=== PATIENT | female | born 1945 | race Caucasian/White ===

== ENCOUNTER 2019-05-19 10:35 | Day surgery (SDC) | payer MEDICARE ==
[~2019-05-19] VITALS: Ht 157.5 cm; Wt 128.4 kg
[~2019-05-19 10:35] MED LIST: AMLO5TAB6 PO; ATOR1TAB19 PO; CLOP75TA2 PO; FENO145T13 PO; GLIM2TAB29 PO; JANU50TA8 PO; LIDOCAINE 2% INJ 100 MG/5 ML SDV (FOR ANES.) As Ordered ONE; LISI-538 PO; MELO15TA28 PO; METO50TA7 PO; NS 1,000 ML IV ONE; OMEP-221 PO; OXYB1TAB13 PO; PROPOFOL 500 MG/50 ML VIAL As Ordered ONE; VITA500045 PO
[2019-05-19] MEDS ORDERED: fentaNYL 100 MCG/2 ML INJECTION (J3010) As Ordered ONE (11:49)
[2019-05-19 12:50] VITALS: BP 187/84
--- NOTE | 2019-05-19 15:50 | ROOR ---
Patient Name: Tamika Cee Procedure Date: 05/19/2019 11:41 AM Date of : 1945 Age: 73 Room: [facility] Gender: Female Note Status: Finalized Procedure: Colonoscopy Indications: Iron deficiency anemia Providers: Tru Gauthier Jr, MD Referring MD: Doug Kendall MD Requesting Provider: Medicines: Propofol per Anesthesia Complications: No immediate complications. Procedure: Pre-Anesthesia Assessment: - Prior to the procedure, a History and Physical was performed, and patient medications and allergies were reviewed. The patient is competent. The risks and benefits of the procedure and the sedation options and risks were discussed with the patient. All questions were answered and informed consent was obtained. Patient identification and proposed procedure were verified by the physician and the nurse in the pre-procedure area and in the procedure room. Mental Status Examination: alert and oriented. Airway Examination: normal oropharyngeal airway and neck mobility. Respiratory Examination: clear to auscultation. CV Examination: normal. ASA Grade Assessment: II - A patient with mild systemic disease. After reviewing the risks and benefits, the patient was deemed in satisfactory condition to undergo the procedure. The anesthesia plan was to use moderate sedation / analgesia (conscious sedation). Immediately prior to administration of medications, the patient was re-assessed for adequacy to receive sedatives. The heart rate, respiratory rate, oxygen saturations, blood pressure, adequacy of pulmonary ventilation, and response to care were monitored throughout the procedure. The physical status of the patient was re-assessed after the procedure. The Colonoscope was introduced through the anus and advanced to the cecum, identified by appendiceal orifice and ileocecal valve. The colonoscopy was performed without difficulty. The patient tolerated the procedure well. The quality of the bowel preparation was adequate. Findings: The rectum, recto-sigmoid colon, sigmoid colon, descending colon, transverse colon, ascending colon, cecum, appendiceal orifice and ileocecal valve appeared normal. Impression: - The rectum, recto-sigmoid colon, sigmoid colon, descending colon, transverse colon, ascending colon, cecum, appendiceal orifice and ileocecal valve are normal. - No specimens collected. Recommendation: - Discharge patient to home (ambulatory). - Repeat colonoscopy in 10 years for screening purposes. Tru Gauthier MD Tur Gauthier Jr, MD 05/19/2019 12:13:56 PM Electronically signed by Tru Gauthier Jr, MD Number of Addenda: 0 Note Initiated On: 05/19/2019 11:41 AM Estimated Blood Loss: Estimated blood loss: none.
--- NOTE | 2019-05-19 15:50 | ROOR ---
Patient Name: Tamika Cee Procedure Date: 05/19/2019 11:40 AM Date of : 1945 Age: 73 Room: [facility] Gender: Female Note Status: Finalized Procedure: Upper GI endoscopy Indications: Iron deficiency anemia Providers: Tru Gauthier Jr, MD Referring MD: Doug Kendall MD Requesting Provider: Medicines: Propofol per Anesthesia Complications: No immediate complications. Procedure: Pre-Anesthesia Assessment: - Prior to the procedure, a History and Physical was performed, and patient medications and allergies were reviewed. The patient is competent. The risks and benefits of the procedure and the sedation options and risks were discussed with the patient. All questions were answered and informed consent was obtained. Patient identification and proposed procedure were verified by the physician and the nurse in the pre-procedure area and in the procedure room. Mental Status Examination: alert and oriented. Airway Examination: normal oropharyngeal airway and neck mobility. Respiratory Examination: clear to auscultation. CV Examination: normal. ASA Grade Assessment: II - A patient with mild systemic disease. After reviewing the risks and benefits, the patient was deemed in satisfactory condition to undergo the procedure. The anesthesia plan was to use moderate sedation / analgesia (conscious sedation). Immediately prior to administration of medications, the patient was re-assessed for adequacy to receive sedatives. The heart rate, respiratory rate, oxygen saturations, blood pressure, adequacy of pulmonary ventilation, and response to care were monitored throughout the procedure. The physical status of the patient was re-assessed after the procedure. The Endoscope was introduced through the mouth, and advanced to the second part of duodenum. The upper GI endoscopy was accomplished without difficulty. The patient tolerated the procedure well. Findings: The upper third of the esophagus, middle third of the esophagus and lower third of the esophagus were normal. A medium-sized hiatal hernia was present. Scattered islands of salmon-colored mucosa were present. Biopsies were taken with a cold forceps for histology. The cardia, gastric fundus, gastric body, gastric antrum, prepyloric region of the stomach and pylorus were normal. The duodenal bulb, first portion of the duodenum and second portion of the duodenum were normal. Impression: - Normal upper third of esophagus, middle third of esophagus and lower third of esophagus. - Medium-sized hiatal hernia. 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 Biopsied. - Normal cardia, gastric fundus, gastric body, antrum, prepyloric region of the stomach and pylorus. - Normal duodenal bulb, first portion of the duodenum and second portion of the duodenum. Recommendation: - Discharge patient to home (ambulatory). - Return to my office in 2 weeks. Tru Gauthier MD Tru Gauthier Jr, MD 05/19/2019 12:03:50 PM Electronically signed by Tru Gauthier Jr, MD Number of Addenda: 0 Note Initiated On: 05/19/2019 11:40 AM Estimated Blood Loss: Estimated blood loss: none.
== END 2019-05-19 13:03 | disposition home or self-care (01) ==
LOC: M OPP 10:35
PROVIDERS: ATTEND Surgery
DX: K22.8 Other specified diseases of esophagus (principal); K62.5 Hemorrhage of anus and rectum; K57.30 Diverticulosis of large intestine without perforation or abscess without bleeding; D50.9 Iron deficiency anemia, unspecified; I10 Essential (primary) hypertension; Z79.899 Other long term (current) drug therapy; Z88.0 Allergy status to penicillin; Z88.1 Allergy status to other antibiotic agents; Z88.2 Allergy status to sulfonamides; Z85.51 Personal history of malignant neoplasm of bladder
CPT/HCPCS: 43239; 45378; 88305; J3010

== ENCOUNTER 2022-06-10 09:13 | Inpatient (IN) | payer MEDICARE, BC, MEDICAID ==
[~2022-06-10] VITALS: Ht 160 cm; Wt 129.1 kg
[~2022-06-10 09:13] MED LIST changes: +AMLO1TAB24 PO; -AMLO5TAB6 PO; -FENO145T13 PO; +FENO145T7 PO; -LIDOCAINE 2% INJ 100 MG/5 ML SDV (FOR ANES.) As Ordered ONE; -LISI-538 PO; +LISI20TA33 PO; -NS 1,000 ML IV ONE; -OMEP-221 PO; +OMEP40CA5 PO; +OXYB15TA14 PO; -OXYB1TAB13 PO; -PROPOFOL 500 MG/50 ML VIAL As Ordered ONE
[2022-06-10 09:55] LABS: BASO # 0.1 10^3/uL (0.0-0.2); BASO % 0.6 % (0.0-1.0); EOS # 0.1 10^3/uL (0.0-0.5); EOS % 1.2 % (0.0-3.0); HEMATOCRIT 36.7 % (36.0-47.0); HEMOGLOBIN 11.2 g/dl (12.0-15.5); LYMPH # 0.8 10^3/uL (1.5-5.0); LYMPH % 7.9 % (24.0-44.0); MEAN CORPUSCULAR HGB CONC 30.5 g/dl (32.0-36.5); MEAN CORPUSCULAR VOLUME 91.8 fl (80.0-96.0); MONO # 0.7 10^3/uL (0.0-0.8); MONO % 6.7 % (2.0-8.0); NEUTROPHILS # 8.4 10^3/uL (1.5-8.5); NEUTROPHILS % 82.9 % (36.0-66.0); PLATELET COUNT, AUTOMATED 303 10^3/uL (150-450); WHITE BLOOD COUNT 10.2 10^3/uL (4.0-10.0)
[2022-06-10 10:25] LABS: ALBUMIN 3.3 G/DL (3.2-5.2); BILIRUBIN,DIRECT 0.2 MG/DL (<0.4); BILIRUBIN,TOTAL 0.5 MG/DL (0.3-1.2); CALCIUM LEVEL 9.3 MG/DL (8.3-10.6); CREATININE FOR GFR 1.51 MG/DL (0.55-1.30); GLOMERULAR FILTRATION RATE 35.9 (>39); POTASSIUM SERUM 4.7 MMOL/L (3.5-5.1)
[2022-06-10] MEDS ORDERED: DULA3PEN SQ (10:34)
[2022-06-10] MEDS ORDERED: NATE120T4 PO (10:34)
[2022-06-10] MEDS ORDERED: SYNT50TA PO (10:34)
[2022-06-10] MEDS ORDERED: METO1TAB7 PO (10:34)
[2022-06-10] MEDS ORDERED: RANO500T7 PO (10:34)
[2022-06-10] MEDS ORDERED: NOVOINJ3 SC (10:34)
[2022-06-10] MEDS ORDERED: DILT180C95 PO (10:34)
[2022-06-10] MEDS ORDERED: FLEC50HA PO (10:34)
[2022-06-10] MEDS ORDERED: POTA10CA33 PO (10:34)
[2022-06-10] MEDS ORDERED: NYST1POW9 TOP (10:34)
[2022-06-10] MEDS ORDERED: ELIQ5TAB PO (10:34)
[2022-06-10] MEDS ORDERED: HOME MED LIST COMPLETE! XX SCH (10:40)
[2022-06-10 11:35] LABS: RSV AMPLIFICATION NEGATIVE (NEGATIVE)
[2022-06-10] MEDS ORDERED: FUROSEMIDE 40MG/4ML VIAL IV ONE (11:55)
[2022-06-10 12:00] LABS: MAGNESIUM LEVEL 1.6 MG/DL (1.8-2.4)
[2022-06-10] MEDS ORDERED: GLUCAGON INJ 1MG VIAL SC PRN (14:20)
[2022-06-10] MEDS ORDERED: DEXTROSE 50% 50ML SYRINGE IV PRN (14:20)
[2022-06-10] MEDS ORDERED: GLUCOSE 4GM CHEW TABLET PO PRN (14:20)
[2022-06-10] MEDS ORDERED: MOM 30ML SUSPENSION UDC PO PRN (14:20)
[2022-06-10] MEDS ORDERED: PILL CUTTER 1 EACH XX PRN (14:40)
[2022-06-10 16:07] LABS: INR 1.39; PARTIAL THROMBOPLASTIN TIME 30.7 SECONDS (24.8-34.2); PROTHROMBIN TIME 17.3 SECONDS (12.5-14.5)
[2022-06-10] MEDS: FUROSEMIDE 40MG/4ML VIAL IV SCH (17:34)
[2022-06-10] MEDS: INSULIN LISPRO (NovoLOG) PER UNIT SC SCH (17:35)
[2022-06-10] MEDS: MAGNESIUM OXIDE 400MG TAB (MAG-OX) PO SCH (21:00)
[2022-06-10] MEDS: ATORVASTATIN 10 MG TAB PO SCH (21:45)
[2022-06-10] MEDS: FLECAINIDE 50MG TABLET PO SCH (21:46)
[2022-06-10] MEDS: FENOFIBRATE 145MG TABLET (TRICOR) PO SCH (21:46)
[2022-06-10] MEDS: OMEPRAZOLE 20MG CAP PO SCH (21:46)
[2022-06-10] MEDS: APIXABAN 5 MG TAB (ELIQUIS) PO SCH (21:46)
[2022-06-10] MEDS: DOCUSATE SODIUM 100MG CAPSULE PO SCH (21:46)
[2022-06-10] MEDS: METOPROLOL SUCC (TopROL XL) 50MG **XL** TAB PO SCH (21:47)
[2022-06-10 22:37] VITALS: BP 126/75
[2022-06-10] MEDS: POTASSIUM CHLORIDE 10MEQ SR TABLET PO SCH (22:45)
[2022-06-11 00:07] VITALS: BP 115/58
[2022-06-11] MEDS ORDERED: MAG SULF 1GM/100ML (MAG RUN) 1 GM in IV 1 EA IV ONE ×2 (01:00→11:30)
[2022-06-11 04:28] VITALS: BP 110/58
[2022-06-11] MEDS: LEVOTHYROXINE 50MCG TABLET (0.05MG) PO SCH (05:22)
[2022-06-11 08:27] VITALS: BP 114/57
[2022-06-11 08:37] LABS: BASO # 0.1 10^3/uL (0.0-0.2); BASO % 0.7 % (0.0-1.0); EOS # 0.1 10^3/uL (0.0-0.5); EOS % 1.1 % (0.0-3.0); HEMATOCRIT 35.9 % (36.0-47.0); HEMOGLOBIN 11.1 g/dl (12.0-15.5); LYMPH # 1.1 10^3/uL (1.5-5.0); MEAN CORPUSCULAR HEMOGLOBIN 27.8 pg (27.0-33.0); MEAN CORPUSCULAR HGB CONC 30.9 g/dl (32.0-36.5); MEAN CORPUSCULAR VOLUME 89.8 fl (80.0-96.0); MONO # 0.6 10^3/uL (0.0-0.8); NEUTROPHILS # 7.1 10^3/uL (1.5-8.5); NEUTROPHILS % 78.9 % (36.0-66.0); PLATELET COUNT, AUTOMATED 309 10^3/uL (150-450)
[2022-06-11] MEDS: POTASSIUM CHLORIDE 10MEQ SR TABLET PO SCH ×2 (08:46→20:31)
[2022-06-11] MEDS: OMEPRAZOLE 20MG CAP PO SCH ×2 (08:46→20:29)
[2022-06-11] MEDS: APIXABAN 5 MG TAB (ELIQUIS) PO SCH ×2 (08:46→20:30)
[2022-06-11] MEDS: MAGNESIUM OXIDE 400MG TAB (MAG-OX) PO SCH ×2 (08:46→20:31)
[2022-06-11] MEDS: FUROSEMIDE 40MG/4ML VIAL IV SCH ×2 (08:47→17:14)
[2022-06-11] MEDS: FLECAINIDE 50MG TABLET PO SCH ×2 (08:47→20:30)
[2022-06-11] MEDS: RANOLAZINE 500MG ER TAB PO SCH (08:47)
[2022-06-11] MEDS: INSULIN LISPRO (NovoLOG) PER UNIT SC SCH ×3 (08:48→18:37)
[2022-06-11] MEDS: DOCUSATE SODIUM 100MG CAPSULE PO SCH ×2 (08:49→20:30)
[2022-06-11 08:55] LABS: MAGNESIUM LEVEL 1.7 MG/DL (1.8-2.4)
[2022-06-11 09:00] LABS: CALCIUM LEVEL 8.7 MG/DL (8.3-10.6); CREATININE FOR GFR 1.46 MG/DL (0.55-1.30); GLOMERULAR FILTRATION RATE 37.3 (>39); POTASSIUM SERUM 4.6 MMOL/L (3.5-5.1)
[2022-06-11 12:00] VITALS: BP 117/56
[2022-06-11] MEDS: NYSTATIN 100,000 UNITS/GM TOPICAL PWD 15GM TOP SCH ×2 (12:47→20:33)
[2022-06-11 15:47] VITALS: BP 109/73
[2022-06-11 20:00] VITALS: BP 104/72
[2022-06-11] MEDS: FENOFIBRATE 145MG TABLET (TRICOR) PO SCH (20:30)
[2022-06-11] MEDS: ATORVASTATIN 10 MG TAB PO SCH (20:31)
[2022-06-11] MEDS: METOPROLOL SUCC (TopROL XL) 50MG **XL** TAB PO SCH (20:32)
[2022-06-12 04:00] VITALS: BP 113/73
[2022-06-12] MEDS: LEVOTHYROXINE 50MCG TABLET (0.05MG) PO SCH (05:20)
[2022-06-12 08:00] VITALS: BP 98/60
[2022-06-12] MEDS: RANOLAZINE 500MG ER TAB PO SCH (08:25)
[2022-06-12] MEDS: DOCUSATE SODIUM 100MG CAPSULE PO SCH ×2 (08:25→20:54)
[2022-06-12] MEDS: INSULIN LISPRO (NovoLOG) PER UNIT SC SCH ×4 (08:25→21:43)
[2022-06-12] MEDS: APIXABAN 5 MG TAB (ELIQUIS) PO SCH ×2 (08:25→20:55)
[2022-06-12] MEDS: OMEPRAZOLE 20MG CAP PO SCH ×2 (08:25→20:54)
[2022-06-12] MEDS: POTASSIUM CHLORIDE 10MEQ SR TABLET PO SCH ×2 (08:26→20:54)
[2022-06-12] MEDS: MAGNESIUM OXIDE 400MG TAB (MAG-OX) PO SCH ×2 (08:26→20:54)
[2022-06-12] MEDS: FLECAINIDE 50MG TABLET PO SCH ×2 (08:41→21:00)
[2022-06-12] MEDS: NYSTATIN 100,000 UNITS/GM TOPICAL PWD 15GM TOP SCH ×2 (08:42→20:57)
[2022-06-12 08:57] LABS: BASO # 0.1 10^3/uL (0.0-0.2); BASO % 0.9 % (0.0-1.0); EOS # 0.1 10^3/uL (0.0-0.5); EOS % 1.3 % (0.0-3.0); HEMATOCRIT 37.4 % (36.0-47.0); HEMOGLOBIN 11.6 g/dl (12.0-15.5); LYMPH # 1.2 10^3/uL (1.5-5.0); MEAN CORPUSCULAR VOLUME 90.3 fl (80.0-96.0); MONO # 0.7 10^3/uL (0.0-0.8); MONO % 8.2 % (2.0-8.0); NEUTROPHILS # 5.8 10^3/uL (1.5-8.5); NEUTROPHILS % 74.1 % (36.0-66.0); PLATELET COUNT, AUTOMATED 354 10^3/uL (150-450); RED BLOOD COUNT 4.14 10^6/uL (4.00-5.40); WHITE BLOOD COUNT 7.9 10^3/uL (4.0-10.0)
[2022-06-12] MEDS ORDERED: DIGOXIN INJ 0.5 MG/2 ML AMP IV ONE ×2 (09:00→15:00)
[2022-06-12 09:04] LABS: MAGNESIUM LEVEL 1.6 MG/DL (1.8-2.4)
[2022-06-12 09:15] LABS: CALCIUM LEVEL 9.2 MG/DL (8.3-10.6); CREATININE FOR GFR 1.72 MG/DL (0.55-1.30); GLOMERULAR FILTRATION RATE 30.9 (>39); POTASSIUM SERUM 4.1 MMOL/L (3.5-5.1)
[2022-06-12] MEDS: METOCLOPRAMIDE INJ 10MG/2ML VIAL IV PRN (10:27)
[2022-06-12 12:00] VITALS: BP 123/79
[2022-06-12 15:56] VITALS: BP 135/69
[2022-06-12 20:43] VITALS: BP 104/58
[2022-06-12] MEDS: ATORVASTATIN 10 MG TAB PO SCH (20:55)
[2022-06-12] MEDS: FENOFIBRATE 145MG TABLET (TRICOR) PO SCH (20:55)
[2022-06-12] MEDS: METOPROLOL SUCC (TopROL XL) 50MG **XL** TAB PO SCH (20:55)
[2022-06-13] MEDS: AMIODARONE 200 MG TAB (PACERONE) PO SCH ×3 (00:08→22:01)
[2022-06-13 00:10] VITALS: BP 116/56
[2022-06-13 04:00] VITALS: BP 106/56
[2022-06-13 04:59] LABS: BASO # 0.1 10^3/uL (0.0-0.2); EOS # 0.1 10^3/uL (0.0-0.5); EOS % 1.6 % (0.0-3.0); HEMATOCRIT 35.1 % (36.0-47.0); HEMOGLOBIN 10.8 g/dl (12.0-15.5); LYMPH # 1.6 10^3/uL (1.5-5.0); LYMPH % 20.3 % (24.0-44.0); MEAN CORPUSCULAR HEMOGLOBIN 27.7 pg (27.0-33.0); MEAN CORPUSCULAR HGB CONC 30.8 g/dl (32.0-36.5); MONO # 0.7 10^3/uL (0.0-0.8); MONO % 9.3 % (2.0-8.0); NEUTROPHILS # 5.4 10^3/uL (1.5-8.5); NEUTROPHILS % 67.3 % (36.0-66.0); PLATELET COUNT, AUTOMATED 316 10^3/uL (150-450)
[2022-06-13 05:17] LABS: CALCIUM LEVEL 8.9 MG/DL (8.3-10.6); CREATININE FOR GFR 1.59 MG/DL (0.55-1.30); GLOMERULAR FILTRATION RATE 33.8 (>39); POTASSIUM SERUM 4.2 MMOL/L (3.5-5.1)
[2022-06-13] MEDS: LEVOTHYROXINE 50MCG TABLET (0.05MG) PO SCH (05:32)
[2022-06-13 08:00] VITALS: BP 137/69
[2022-06-13] MEDS: NYSTATIN 100,000 UNITS/GM TOPICAL PWD 15GM TOP SCH ×2 (09:00→21:00)
[2022-06-13] MEDS ORDERED: DIGOXIN 0.25 MG TAB PO SCH (09:00)
[2022-06-13] MEDS: INSULIN LISPRO (NovoLOG) PER UNIT SC SCH ×4 (09:49→22:06)
[2022-06-13] MEDS: RANOLAZINE 500MG ER TAB PO SCH (09:49)
[2022-06-13] MEDS: DOCUSATE SODIUM 100MG CAPSULE PO SCH ×2 (09:50→22:01)
[2022-06-13] MEDS: POTASSIUM CHLORIDE 10MEQ SR TABLET PO SCH ×2 (09:50→22:00)
[2022-06-13] MEDS: OMEPRAZOLE 20MG CAP PO SCH ×2 (09:50→21:59)
[2022-06-13] MEDS: APIXABAN 5 MG TAB (ELIQUIS) PO SCH ×2 (09:50→22:01)
[2022-06-13] MEDS: MAGNESIUM OXIDE 400MG TAB (MAG-OX) PO SCH ×2 (09:51→22:01)
[2022-06-13 12:00] VITALS: BP 128/60
[2022-06-13 16:00] VITALS: BP 137/71
[2022-06-13] MEDS: FUROSEMIDE 40MG/4ML VIAL IV SCH (17:07)
[2022-06-13 20:00] VITALS: BP 117/60
[2022-06-13] MEDS: FENOFIBRATE 145MG TABLET (TRICOR) PO SCH (22:00)
[2022-06-13] MEDS: ATORVASTATIN 10 MG TAB PO SCH (22:00)
[2022-06-13] MEDS: METOPROLOL SUCC (TopROL XL) 50MG **XL** TAB PO SCH (22:02)
[2022-06-14] VITALS: BP 107/62
[2022-06-14] MEDS: METOCLOPRAMIDE INJ 10MG/2ML VIAL IV PRN (01:19)
[2022-06-14 04:00] VITALS: BP 141/65
[2022-06-14 04:52] LABS: BASO # 0.1 10^3/uL (0.0-0.2); EOS # 0.1 10^3/uL (0.0-0.5); EOS % 1.9 % (0.0-3.0); HEMOGLOBIN 11.1 g/dl (12.0-15.5); LYMPH # 1.3 10^3/uL (1.5-5.0); LYMPH % 18.2 % (24.0-44.0); MEAN CORPUSCULAR HEMOGLOBIN 27.8 pg (27.0-33.0); MEAN CORPUSCULAR VOLUME 92.7 fl (80.0-96.0); MONO # 0.6 10^3/uL (0.0-0.8); MONO % 8.7 % (2.0-8.0); NEUTROPHILS # 4.8 10^3/uL (1.5-8.5); NEUTROPHILS % 69.8 % (36.0-66.0); PLATELET COUNT, AUTOMATED 282 10^3/uL (150-450); RED BLOOD COUNT 3.99 10^6/uL (4.00-5.40); WHITE BLOOD COUNT 6.9 10^3/uL (4.0-10.0)
[2022-06-14 05:20] LABS: CALCIUM LEVEL 8.6 MG/DL (8.3-10.6); CREATININE FOR GFR 1.51 MG/DL (0.55-1.30); GLOMERULAR FILTRATION RATE 35.9 (>39); POTASSIUM SERUM 4.5 MMOL/L (3.5-5.1)
[2022-06-14] MEDS: LEVOTHYROXINE 50MCG TABLET (0.05MG) PO SCH (06:27)
[2022-06-14] MEDS: INSULIN LISPRO (NovoLOG) PER UNIT SC SCH ×4 (07:30→20:20)
[2022-06-14 08:00] VITALS: BP 128/57
[2022-06-14 08:10] LABS: MAGNESIUM LEVEL 1.6 MG/DL (1.8-2.4)
[2022-06-14] MEDS: METOCLOPRAMIDE INJ 10MG/2ML VIAL IV SCH ×4 (09:13→23:39)
[2022-06-14] MEDS: AMIODARONE 200 MG TAB (PACERONE) PO SCH ×2 (09:13→20:17)
[2022-06-14] MEDS: RANOLAZINE 500MG ER TAB PO SCH (09:13)
[2022-06-14] MEDS: FUROSEMIDE 40MG/4ML VIAL IV SCH ×2 (09:13→17:46)
[2022-06-14] MEDS: DOCUSATE SODIUM 100MG CAPSULE PO SCH ×2 (09:13→20:16)
[2022-06-14] MEDS: POTASSIUM CHLORIDE 10MEQ SR TABLET PO SCH (09:14)
[2022-06-14] MEDS: APIXABAN 5 MG TAB (ELIQUIS) PO SCH ×2 (09:14→20:18)
[2022-06-14] MEDS: MAGNESIUM OXIDE 400MG TAB (MAG-OX) PO SCH ×2 (09:14→20:19)
[2022-06-14] MEDS: OMEPRAZOLE 20MG CAP PO SCH ×2 (09:14→20:17)
[2022-06-14] MEDS: NYSTATIN 100,000 UNITS/GM TOPICAL PWD 15GM TOP SCH ×2 (09:15→20:21)
[2022-06-14] MEDS ORDERED: ONDANSETRON 4MG 2ML VIAL IV PRN (10:20)
[2022-06-14] MEDS: MAG SULF 1GM/100ML (MAG RUN) 1 GM in IV 1 EA IV SCH ×2 (11:10→12:20)
[2022-06-14 12:00] VITALS: BP 128/65
[2022-06-14 16:00] VITALS: BP 126/66
[2022-06-14] MEDS: METOPROLOL SUCC (TopROL XL) 50MG **XL** TAB PO SCH (20:16)
[2022-06-14] MEDS: FENOFIBRATE 145MG TABLET (TRICOR) PO SCH (20:18)
[2022-06-14] MEDS: ATORVASTATIN 10 MG TAB PO SCH (20:18)
[2022-06-15] VITALS (7 sets, daily range): BP systolic 104–155; BP diastolic 48–86
[2022-06-15] MEDS: METOCLOPRAMIDE INJ 10MG/2ML VIAL IV SCH ×4 (05:50→23:55)
[2022-06-15] MEDS: LEVOTHYROXINE 50MCG TABLET (0.05MG) PO SCH (05:50)
[2022-06-15 06:05] LABS: BASO # 0.1 10^3/uL (0.0-0.2); BASO % 1.2 % (0.0-1.0); EOS # 0.1 10^3/uL (0.0-0.5); HEMATOCRIT 41.7 % (36.0-47.0); HEMOGLOBIN 12.3 g/dl (12.0-15.5); LYMPH # 1.2 10^3/uL (1.5-5.0); LYMPH % 16.7 % (24.0-44.0); MEAN CORPUSCULAR HEMOGLOBIN 27.6 pg (27.0-33.0); MEAN CORPUSCULAR HGB CONC 29.5 g/dl (32.0-36.5); MEAN CORPUSCULAR VOLUME 93.5 fl (80.0-96.0); MONO # 0.7 10^3/uL (0.0-0.8); MONO % 10.5 % (2.0-8.0); NEUTROPHILS # 4.8 10^3/uL (1.5-8.5); PLATELET COUNT, AUTOMATED 312 10^3/uL (150-450); RED BLOOD COUNT 4.46 10^6/uL (4.00-5.40); WHITE BLOOD COUNT 6.9 10^3/uL (4.0-10.0)
[2022-06-15 06:24] LABS: MAGNESIUM LEVEL 1.8 MG/DL (1.8-2.4)
[2022-06-15 06:30] LABS: CALCIUM LEVEL 9.2 MG/DL (8.3-10.6); CREATININE FOR GFR 1.51 MG/DL (0.55-1.30); GLOMERULAR FILTRATION RATE 35.9 (>39); POTASSIUM SERUM 3.8 MMOL/L (3.5-5.1)
[2022-06-15] MEDS: DOCUSATE SODIUM 100MG CAPSULE PO SCH ×2 (09:42→20:59)
[2022-06-15] MEDS: INSULIN LISPRO (NovoLOG) PER UNIT SC SCH ×4 (09:42→20:08)
[2022-06-15] MEDS: FUROSEMIDE 40MG/4ML VIAL IV SCH ×2 (09:42→17:59)
[2022-06-15] MEDS: APIXABAN 5 MG TAB (ELIQUIS) PO SCH ×2 (09:43→20:59)
[2022-06-15] MEDS: RANOLAZINE 500MG ER TAB PO SCH (09:43)
[2022-06-15] MEDS: AMIODARONE 200 MG TAB (PACERONE) PO SCH ×2 (09:43→20:59)
[2022-06-15] MEDS: OMEPRAZOLE 20MG CAP PO SCH ×2 (09:43→21:00)
[2022-06-15] MEDS: NYSTATIN 100,000 UNITS/GM TOPICAL PWD 15GM TOP SCH ×2 (09:44→21:00)
[2022-06-15] MEDS: MAGNESIUM OXIDE 400MG TAB (MAG-OX) PO SCH ×2 (09:54→20:59)
[2022-06-15] MEDS: FENOFIBRATE 145MG TABLET (TRICOR) PO SCH (20:59)
[2022-06-15] MEDS: ATORVASTATIN 10 MG TAB PO SCH (20:59)
[2022-06-15] MEDS: METOPROLOL SUCC (TopROL XL) 50MG **XL** TAB PO SCH (21:00)
[2022-06-16 04:10] VITALS: BP 102/58
[2022-06-16] MEDS: LEVOTHYROXINE 50MCG TABLET (0.05MG) PO SCH (05:35)
[2022-06-16] MEDS: METOCLOPRAMIDE INJ 10MG/2ML VIAL IV SCH ×3 (05:35→18:00)
[2022-06-16 06:02] LABS: BASO # 0.1 10^3/uL (0.0-0.2); EOS # 0.2 10^3/uL (0.0-0.5); EOS % 2.9 % (0.0-3.0); HEMATOCRIT 36.9 % (36.0-47.0); HEMOGLOBIN 11.3 g/dl (12.0-15.5); LYMPH # 1.3 10^3/uL (1.5-5.0); LYMPH % 18.9 % (24.0-44.0); MEAN CORPUSCULAR HEMOGLOBIN 27.8 pg (27.0-33.0); MEAN CORPUSCULAR HGB CONC 30.6 g/dl (32.0-36.5); MEAN CORPUSCULAR VOLUME 90.7 fl (80.0-96.0); MONO # 0.7 10^3/uL (0.0-0.8); MONO % 10.6 % (2.0-8.0); NEUTROPHILS # 4.6 10^3/uL (1.5-8.5); PLATELET COUNT, AUTOMATED 337 10^3/uL (150-450); RED BLOOD COUNT 4.07 10^6/uL (4.00-5.40); WHITE BLOOD COUNT 6.9 10^3/uL (4.0-10.0)
[2022-06-16 06:34] LABS: CREATININE FOR GFR 1.54 MG/DL (0.55-1.30); GLOMERULAR FILTRATION RATE 35.1 (>39)
[2022-06-16] MEDS: INSULIN LISPRO (NovoLOG) PER UNIT SC SCH ×4 (07:30→21:25)
[2022-06-16 07:46] VITALS: BP 138/66
[2022-06-16] MEDS: OMEPRAZOLE 20MG CAP PO SCH ×2 (09:00→21:24)
[2022-06-16] MEDS: FUROSEMIDE 40MG/4ML VIAL IV SCH (09:30)
[2022-06-16 09:31] VITALS: BP 138/66
[2022-06-16] MEDS: DOCUSATE SODIUM 100MG CAPSULE PO SCH ×2 (09:31→21:24)
[2022-06-16] MEDS: MAGNESIUM OXIDE 400MG TAB (MAG-OX) PO SCH ×2 (09:32→21:25)
[2022-06-16] MEDS: AMIODARONE 200 MG TAB (PACERONE) PO SCH ×2 (09:32→21:25)
[2022-06-16] MEDS: APIXABAN 5 MG TAB (ELIQUIS) PO SCH ×2 (09:33→21:24)
[2022-06-16] MEDS: RANOLAZINE 500MG ER TAB PO SCH (09:33)
[2022-06-16] MEDS: NYSTATIN 100,000 UNITS/GM TOPICAL PWD 15GM TOP SCH ×2 (09:34→21:26)
[2022-06-16 16:00] VITALS: BP 101/52
[2022-06-16] MEDS: TORSEMIDE 20 MG TAB PO SCH (18:05)
[2022-06-16] MEDS ORDERED: TORS20TA2 PO (18:22)
[2022-06-16] MEDS ORDERED: AMIO200T49 PO (18:24)
[2022-06-16] MEDS ORDERED: MAGN400T2 PO (18:25)
[2022-06-16 20:02] VITALS: BP 95/52
[2022-06-16] MEDS: METOPROLOL SUCC (TopROL XL) 50MG **XL** TAB PO SCH (21:00)
[2022-06-16 21:02] VITALS: BP 105/61
[2022-06-16] MEDS: FENOFIBRATE 145MG TABLET (TRICOR) PO SCH (21:24)
[2022-06-16] MEDS: ATORVASTATIN 10 MG TAB PO SCH (21:25)
[2022-06-17 04:16] VITALS: BP 114/64
[2022-06-17] MEDS: METOCLOPRAMIDE INJ 10MG/2ML VIAL IV SCH ×2 (05:21)
[2022-06-17] MEDS: LEVOTHYROXINE 50MCG TABLET (0.05MG) PO SCH (06:00)
[2022-06-17 07:33] VITALS: BP 114/71
[2022-06-17] MEDS: OMEPRAZOLE 20MG CAP PO SCH (09:14)
[2022-06-17] MEDS: APIXABAN 5 MG TAB (ELIQUIS) PO SCH (09:14)
[2022-06-17] MEDS: RANOLAZINE 500MG ER TAB PO SCH (09:15)
[2022-06-17] MEDS: MAGNESIUM OXIDE 400MG TAB (MAG-OX) PO SCH (09:15)
[2022-06-17] MEDS: DOCUSATE SODIUM 100MG CAPSULE PO SCH (09:15)
[2022-06-17] MEDS: TORSEMIDE 20 MG TAB PO SCH (09:15)
[2022-06-17] MEDS: NYSTATIN 100,000 UNITS/GM TOPICAL PWD 15GM TOP SCH (09:16)
[2022-06-17] MEDS: AMIODARONE 200 MG TAB (PACERONE) PO SCH (09:16)
[2022-06-17] MEDS ORDERED: AMIODARONE HCL 150 MG in IV 1 EA IV STA (10:12)
[2022-06-17] MEDS ORDERED: POTA10CA33 PO (10:16)
[2022-06-17] MEDS: INSULIN LISPRO (NovoLOG) PER UNIT SC SCH (10:45)
== END 2022-06-17 12:22 | DRG 291 ==
LOC: M ED 09:13 → EDBD 09:13 → M ED INP 09:14 → ENRESERV 21:31 → M PCU 22:30 → OBSVTOIN 06-12 08:13
PROVIDERS: ADMIT Internal Medicine Nephrology; ATTEND Internal Medicine Nephrology
DX: I13.0 Hypertensive heart and chronic kidney disease with heart failure and stage 1 through stage 4 chronic kidney disease, or unspecified chronic kidney disease (principal); I50.33 Acute on chronic diastolic (congestive) heart failure; Z68.43 Body mass index [BMI] 50.0-59.9, adult; N17.9 Acute kidney failure, unspecified; E11.9 Type 2 diabetes mellitus without complications; E83.42 Hypomagnesemia; E03.9 Hypothyroidism, unspecified; E78.5 Hyperlipidemia, unspecified; I25.10 Atherosclerotic heart disease of native coronary artery without angina pectoris; I44.7 Left bundle-branch block, unspecified; K21.9 Gastro-esophageal reflux disease without esophagitis; M17.0 Bilateral primary osteoarthritis of knee; E66.01 Morbid (severe) obesity due to excess calories; N18.30 Chronic kidney disease, stage 3 unspecified; E11.22 Type 2 diabetes mellitus with diabetic chronic kidney disease; I27.81 Cor pulmonale (chronic); I27.20 Pulmonary hypertension, unspecified; I50.810 Right heart failure, unspecified; I34.0 Nonrheumatic mitral (valve) insufficiency; Z95.2 Presence of prosthetic heart valve; Z79.899 Other long term (current) drug therapy; Z88.8 Allergy status to other drugs, medicaments and biological substances; Z87.891 Personal history of nicotine dependence

== ENCOUNTER → 2022-07-14 | Outpatient (REF) | payer MEDICARE, BC, MEDICAID ==
[~2022-07-14] MED LIST changes: +AMIO200T49 PO; +DILT180C95 PO; +DULA3PEN SQ; +ELIQ5TAB PO; +FLEC50HA PO; +MAGN400T2 PO; +METO1TAB7 PO; +NATE120T4 PO; +NOVOINJ3 SC; +NYST1POW9 TOP; +POTA10CA33 PO; +RANO500T7 PO; +SYNT50TA PO; +TORS20TA2 PO
[2022-07-14 15:16] LABS: APPEARANCE, URINE MANUAL HAZY (CLEAR); COLOR, URINE MANUAL LT YELLOW (YELLOW)
[2022-07-14 15:17] LABS: BILIRUBIN, URINE MANUAL NEGATIVE (NEGATIVE); BLOOD URINE MANUAL NEGATIVE (NEGATIVE); GLUCOSE, URINE (UA) MANUAL NEGATIVE (NEGATIVE); KETONE, URINE MANUAL NEGATIVE (NEGATIVE); LEUKOCYTE ESTERASE, URINE MAN NEGATIVE (NEGATIVE); NITRITE, URINE MANUAL POSITIVE (NEGATIVE); PROTEIN, URINE MANUAL NEGATIVE (NEGATIVE); UROBILINOGEN, URINE MANUAL NORMAL (NORMAL)
[2022-07-14 15:25] LABS: BACTERIA, URINE LARGE AMOUNT; HYALINE CAST, URINE NONE SEEN /lpf (0-1); SQUAMOUS EPITHELIAL CELL URINE SMALL AMOUNT /hpf (SMALL AMT)
== END ==
PROVIDERS: ATTEND Nurse Practitioner Family
DX: N39.0 Urinary tract infection, site not specified (principal)

== ENCOUNTER → 2022-07-21 | Outpatient (REF) | payer MEDICARE, BC, MEDICAID | PROVIDERS: ATTEND Internal Medicine Cardiovascular Disease | DX: Z01.818 Encounter for other preprocedural examination (principal); Z20.822 Contact with and (suspected) exposure to COVID-19 ==

== ENCOUNTER → 2022-09-04 | Outpatient (REF) | payer MEDICARE, BC, MEDICAID ==
[2022-09-04 13:39] LABS: APPEARANCE, URINE CLOUDY (CLEAR); BACTERIA, URINE AUTO 3+ (NEGATIVE); BILIRUBIN, URINE AUTO NEGATIVE (NEGATIVE); BLOOD, URINE BLOOD 2+ (NEGATIVE); COLOR, URINE YELLOW (YELLOW); GLUCOSE, URINE (UA) AUTO NEGATIVE (NEGATIVE); KETONE, URINE AUTO NEGATIVE (NEGATIVE); LEUKOCYTE ESTERASE, URINE AUTO 3+ (NEGATIVE); MUCUS, URINE SMALL (NEGATIVE); NITRITE, URINE AUTO NEGATIVE (NEGATIVE); PROTEIN, URINE AUTO NEGATIVE (NEGATIVE); RBC, URINE AUTO 18 /HPF (0-3); SPECIFIC GRAVITY URINE AUTO 1.016 (1.002-1.035); SQUAMOUS EPITHELIAL CELL UR AU 12 /HPF (0-6); UROBILINOGEN, URINE AUTO 0.2 mg/dL (0.0-2.0); WBC, URINE AUTO TNTC /HPF (0-3)
== END ==
PROVIDERS: ATTEND Internal Medicine Cardiovascular Disease
DX: N39.0 Urinary tract infection, site not specified (principal)

== ENCOUNTER → 2022-11-11 | Outpatient (REF) | payer MEDICARE, BC, MEDICAID | LOC: M LAB REF 10:11 | PROVIDERS: ATTEND Internal Medicine Cardiovascular Disease | DX: K52.9 Noninfective gastroenteritis and colitis, unspecified (principal) ==

== ENCOUNTER → 2022-11-19 | Outpatient (REF) | payer MEDICARE, BC, MEDICAID | LOC: M LAB REF 15:35 | PROVIDERS: ATTEND Internal Medicine Cardiovascular Disease | DX: N39.0 Urinary tract infection, site not specified (principal) ==

== ENCOUNTER → 2022-11-26 | Outpatient (REF) | payer MEDICARE, BC, MEDICAID ==
[2022-11-26 11:29] LABS: HEMATOCRIT 30.9 % (36.0-47.0); HEMOGLOBIN 9.3 g/dl (12.0-15.5); MEAN CORPUSCULAR HEMOGLOBIN 25.3 pg (27.0-33.0); MEAN CORPUSCULAR HGB CONC 30.1 g/dl (32.0-36.5); MEAN CORPUSCULAR VOLUME 84.2 fl (80.0-96.0); PLATELET COUNT, AUTOMATED 252 10^3/uL (150-450); RED BLOOD COUNT 3.67 10^6/uL (4.00-5.40); WHITE BLOOD COUNT 6.4 10^3/uL (4.0-10.0)
[2022-11-26 12:01] LABS: HEMOGLOBIN A1c 8.1 % (4.0-6.0)
[2022-11-26 12:08] LABS: ALKALINE PHOSPHATASE 63 U/L (46-116); ALT/SGPT < 9 U/L (7.0-40); AST/SGOT 15 U/L (<34); BILIRUBIN,TOTAL 0.4 MG/DL (0.3-1.2); BLOOD UREA NITROGEN 49 MG/DL (9-23); CALCIUM LEVEL 8.5 MG/DL (8.3-10.6); CARBON DIOXIDE LEVEL 30 MMOL/L (20-31); CHLORIDE LEVEL 105 MMOL/L (98-107); CREATININE FOR GFR 2.45 MG/DL (0.55-1.30); FREE T4 1.24 NG/DL (0.89-1.76); GLOMERULAR FILTRATION RATE 20.5 (>39); GLUCOSE, FASTING 148 MG/DL (74-106); MAGNESIUM LEVEL 2.1 MG/DL (1.8-2.4); POTASSIUM SERUM 3.8 MMOL/L (3.5-5.1); SODIUM LEVEL 141 MMOL/L (136-145); TOTAL PROTEIN 5.2 G/DL (5.7-8.2); VITAMIN B12 LEVEL 268 PG/ML (211-911)
[2022-11-26 12:09] LABS: CPK CREATINE PHOSPHOKINASE 30 U/L (34-145); THYROID STIMULATING HORMONE 9.382 uIU/ML (0.55-4.78)
[2022-11-26 12:10] LABS: TOTAL 25(OH) VITAMIN D 36.5 NG/ML (20.0-100.0)
== END ==
PROVIDERS: ATTEND Internal Medicine Cardiovascular Disease
DX: I10 Essential (primary) hypertension (principal); E78.5 Hyperlipidemia, unspecified; E03.9 Hypothyroidism, unspecified; Z79.899 Other long term (current) drug therapy

== ENCOUNTER → 2023-01-21 | Outpatient (REF) | payer MEDICARE, BC, MEDICAID ==
[~2023-01-21] MED LIST changes: -POTA10CA33 PO; +POTA10CA60 PO
[2023-01-21 08:38] LABS: BASO # 0.1 10^3/uL (0.0-0.2); BASO % 0.8 % (0.0-1.0); EOS # 0.2 10^3/uL (0.0-0.5); EOS % 2.7 % (0.0-3.0); HEMATOCRIT 32.6 % (36.0-47.0); HEMOGLOBIN 9.9 g/dl (12.0-15.5); LYMPH # 1.3 10^3/uL (1.5-5.0); LYMPH % 22.5 % (24.0-44.0); MEAN CORPUSCULAR HEMOGLOBIN 25.2 pg (27.0-33.0); MEAN CORPUSCULAR HGB CONC 30.4 g/dl (32.0-36.5); MONO # 0.6 10^3/uL (0.0-0.8); MONO % 10.5 % (2.0-8.0); NEUTROPHILS # 3.7 10^3/uL (1.5-8.5); NEUTROPHILS % 63.2 % (36.0-66.0); PLATELET COUNT, AUTOMATED 234 10^3/uL (150-450); RED BLOOD COUNT 3.93 10^6/uL (4.00-5.40); WHITE BLOOD COUNT 5.9 10^3/uL (4.0-10.0)
[2023-01-21 08:54] LABS: CK-MB VALUE MASS 1.3 NG/ML (<3.6)
[2023-01-21 08:57] LABS: CPK CREATINE PHOSPHOKINASE 32 U/L (34-145); MB/CK RELATIVE INDEX 4.06 (< OR =4)
[2023-01-21 08:58] LABS: THYROXINE (T4) 10.5 UG/DL (4.5-10.9)
[2023-01-21 08:59] LABS: HEMOGLOBIN A1c 7.8 % (4.0-6.0); THYROID STIMULATING HORMONE 6.473 uIU/ML (0.55-4.78)
[2023-01-21 09:00] LABS: ALBUMIN 2.7 G/DL (3.2-5.2); ALKALINE PHOSPHATASE 61 U/L (46-116); ALT/SGPT < 9 U/L (7.0-40); AST/SGOT 9 U/L (<34); BILIRUBIN,TOTAL 0.4 MG/DL (0.3-1.2); BLOOD UREA NITROGEN 46 MG/DL (9-23); CALCIUM LEVEL 8.9 MG/DL (8.3-10.6); CARBON DIOXIDE LEVEL 29 MMOL/L (20-31); CHLORIDE LEVEL 103 MMOL/L (98-107); CREATININE FOR GFR 2.93 MG/DL (0.55-1.30); GLOMERULAR FILTRATION RATE 16.6 (>39); GLUCOSE, FASTING 111 MG/DL (74-106); MAGNESIUM LEVEL 1.9 MG/DL (1.8-2.4); SODIUM LEVEL 140 MMOL/L (136-145); TOTAL PROTEIN 5.1 G/DL (5.7-8.2)
== END ==
PROVIDERS: ATTEND Nurse Practitioner Family
DX: I10 Essential (primary) hypertension (principal); Z79.899 Other long term (current) drug therapy

== ENCOUNTER 2023-02-04 23:56 | Observation (INO) | payer MEDICARE, MEDICAID ==
[~2023-02-04] VITALS: Ht 160 cm; Wt 113.6 kg
[2023-02-05] MEDS ORDERED: CETI-24 PO (01:35)
[2023-02-05] MEDS ORDERED: VERI5TAB PO (01:35)
[2023-02-05] MEDS ORDERED: RISATAB3 PO (01:35)
[2023-02-05] MEDS ORDERED: SYNT75TA PO (01:35)
[2023-02-05] MEDS ORDERED: OLOP5DRO17 OU (01:35)
[2023-02-05] MEDS ORDERED: BUME2TAB3 PO (01:35)
[2023-02-05] MEDS ORDERED: SUCR1TAB56 PO (01:35)
[2023-02-05] MEDS ORDERED: POTA-149 PO (01:35)
[2023-02-05] MEDS ORDERED: TUMS500C PO (01:47)
[2023-02-05] MEDS ORDERED: MUPI2OI EXT (01:47)
[2023-02-05] MEDS ORDERED: ACET-907 PO (01:47)
[2023-02-05] MEDS ORDERED: MILKSUS3 PO (01:47)
[2023-02-05] MEDS ORDERED: DOCU100C16 PO (01:47)
[2023-02-05] MEDS ORDERED: ONDA-195 PO (01:47)
[2023-02-05] MEDS ORDERED: BISA5TAB15 PO (01:47)
[2023-02-05] MEDS ORDERED: METO10TA2 PO (01:47)
[2023-02-05] MEDS ORDERED: MIRA1POW3 PO (01:47)
[2023-02-05] MEDS ORDERED: MAGN400T2 PO (01:47)
[2023-02-05] MEDS ORDERED: HOME MED LIST COMPLETE! XX SCH (01:55)
[2023-02-05] MEDS ORDERED: ACETAMINOPHEN 325 MG TAB PO ONE (05:40)
[2023-02-05 12:21] LABS: BASO % 0.7 % (0.0-1.0); EOS # 0.3 10^3/uL (0.0-0.5); EOS % 4.5 % (0.0-3.0); HEMOGLOBIN 9.3 g/dl (12.0-15.5); LYMPH % 16.5 % (24.0-44.0); MEAN CORPUSCULAR HEMOGLOBIN 25.1 pg (27.0-33.0); MEAN CORPUSCULAR VOLUME 80.9 fl (80.0-96.0); MONO # 0.6 10^3/uL (0.0-0.8); MONO % 9.6 % (2.0-8.0); NEUTROPHILS # 4.1 10^3/uL (1.5-8.5); NEUTROPHILS % 68.4 % (36.0-66.0); PLATELET COUNT, AUTOMATED 201 10^3/uL (150-450); RED BLOOD COUNT 3.71 10^6/uL (4.00-5.40)
[2023-02-05 12:44] LABS: ALBUMIN 2.7 G/DL (3.2-5.2); ALKALINE PHOSPHATASE 54 U/L (46-116); ALT/SGPT < 9 U/L (7.0-40); AST/SGOT < 8 U/L (<34); BILIRUBIN,TOTAL 0.5 MG/DL (0.3-1.2); BLOOD UREA NITROGEN 52 MG/DL (9-23); CALCIUM LEVEL 8.9 MG/DL (8.3-10.6); CARBON DIOXIDE LEVEL 29 MMOL/L (20-31); CHLORIDE LEVEL 104 MMOL/L (98-107); CREATININE FOR GFR 2.61 MG/DL (0.55-1.30); GLUCOSE, FASTING 123 MG/DL (74-106); INR 1.8; MAGNESIUM LEVEL 2.3 MG/DL (1.8-2.4); POTASSIUM SERUM 4.1 MMOL/L (3.5-5.1); PROTHROMBIN TIME 20.4 SECONDS (12.5-14.5); SODIUM LEVEL 139 MMOL/L (136-145)
[2023-02-05 12:47] LABS: THYROID STIMULATING HORMONE 6.583 uIU/ML (0.55-4.78)
[2023-02-05 12:56] LABS: RSV AMPLIFICATION NEGATIVE (NEGATIVE)
[2023-02-05] MEDS ORDERED: GLUCOSE 4GM CHEW TABLET PO PRN (14:40)
[2023-02-05] MEDS ORDERED: MOM 30ML SUSPENSION UDC PO PRN (14:40)
[2023-02-05] MEDS ORDERED: GLUCAGON INJ 1MG VIAL SC PRN (14:40)
[2023-02-05] MEDS ORDERED: DEXTROSE 50% 50ML SYRINGE IV PRN (14:40)
[2023-02-05 15:44] LABS: IRON (FE) 31 UG/DL (50-170); PERCENT SATURATION 8.1 % (13.2-45.0); TOTAL IRON BINDING CAPACITY 381 UG/DL (250-425)
[2023-02-05 15:47] LABS: FERRITIN 22.7 NG/ML (7.3-270.7); THYROXINE (T4) 8.6 UG/DL (4.5-10.9); TOTAL 25(OH) VITAMIN D 45.7 NG/ML (20.0-100.0)
[2023-02-05] MEDS: INSULIN LISPRO (NovoLOG) PER UNIT SC SCH ×2 (17:30→21:00)
[2023-02-05 18:00] VITALS: BP 110/76; TEMP 96.8; O2SAT 97
[2023-02-05 21:00] VITALS: BP 110/59; TEMP 97.7; O2SAT 97
[2023-02-05] MEDS: CETIRIZINE (ZyrTEC) 10 MG TAB PO SCH (21:00)
[2023-02-05] MEDS: METOPROLOL SUCC (TopROL XL) 50MG **XL** TAB PO SCH (21:00)
[2023-02-05] MEDS: FENOFIBRATE 145MG TABLET (TRICOR) PO SCH (21:00)
[2023-02-05] MEDS: APIXABAN 5 MG TAB (ELIQUIS) PO SCH (21:00)
[2023-02-05] MEDS: ATORVASTATIN 10 MG TAB PO SCH (21:00)
[2023-02-06] MEDS ORDERED: ONDANSETRON 4MG TAB PO PRN (00:20)
[2023-02-06] MEDS ORDERED: DOCUSATE SODIUM 100MG CAPSULE PO PRN (00:20)
[2023-02-06] MEDS ORDERED: BISACODYL 5MG TAB PO PRN (00:20)
[2023-02-06] MEDS ORDERED: PILL CUTTER 1 EACH XX PRN (00:35)
[2023-02-06] MEDS: LEVOTHYROXINE 75MCG TABLET (0.075MG) PO SCH (05:58)
[2023-02-06] MEDS: ACETAMINOPHEN TAB 650MG DOSE (2X325MG) PO PRN ×2 (05:59→23:25)
[2023-02-06 06:00] VITALS: BP 110/58; TEMP 98.1; O2SAT 94
[2023-02-06 07:01] LABS: CALCIUM LEVEL 8.9 MG/DL (8.3-10.6); CREATININE FOR GFR 2.21 MG/DL (0.55-1.30); MAGNESIUM LEVEL 2.3 MG/DL (1.8-2.4); POTASSIUM SERUM 4.4 MMOL/L (3.5-5.1)
[2023-02-06 08:18] VITALS: BP 107/57
[2023-02-06] MEDS: POTASSIUM CHLORIDE 10MEQ SR TABLET PO SCH ×2 (08:22→22:17)
[2023-02-06] MEDS: oxyBUTYnin *DITROPAN XL* 5 MG TABCR PO SCH ×2 (08:22→22:16)
[2023-02-06] MEDS: APIXABAN 5 MG TAB (ELIQUIS) PO SCH ×2 (08:22→22:17)
[2023-02-06] MEDS: MAGNESIUM OXIDE 400MG TAB (MAG-OX) PO SCH ×3 (08:22→22:17)
[2023-02-06] MEDS: INSULIN LISPRO (NovoLOG) PER UNIT SC SCH ×4 (08:23→21:00)
[2023-02-06] MEDS: SUCRALFATE 1 GM TAB PO SCH ×2 (08:23→22:17)
[2023-02-06] MEDS: dilTIAZem **CD** 180MG CAP PO SCH (08:27)
[2023-02-06] MEDS: BUMETANIDE 1 MG TAB PO SCH ×2 (08:27→17:44)
[2023-02-06] MEDS: OLOPATADINE 0.1% OPHTH SOL 5ML(PATANOL) OU SCH ×2 (09:55→22:16)
[2023-02-06 14:00] VITALS: BP 122/69; TEMP 97.3; O2SAT 100
[2023-02-06 17:46] VITALS: BP 128/92
[2023-02-06] MEDS: CALCIUM CARBONATE 500 MG CHEW U/D PO PRN (18:29)
[2023-02-06 21:00] VITALS: TEMP 97.7; O2SAT 98
[2023-02-06] MEDS: METOPROLOL SUCC (TopROL XL) 50MG **XL** TAB PO SCH (21:00)
[2023-02-06 22:05] VITALS: BP 103/51
[2023-02-06] MEDS: FENOFIBRATE 145MG TABLET (TRICOR) PO SCH (22:16)
[2023-02-06] MEDS: CETIRIZINE (ZyrTEC) 10 MG TAB PO SCH (22:17)
[2023-02-06] MEDS: ATORVASTATIN 10 MG TAB PO SCH (22:17)
[2023-02-07] VITALS (7 sets, daily range): BP systolic 94–130; BP diastolic 49–85; TEMP 97.2–97.9; O2SAT 94–99
[2023-02-07] MEDS: LEVOTHYROXINE 75MCG TABLET (0.075MG) PO SCH (05:21)
[2023-02-07 06:18] LABS: BASO % 0.7 % (0.0-1.0); EOS # 0.2 10^3/uL (0.0-0.5); HEMATOCRIT 31.2 % (36.0-47.0); HEMOGLOBIN 9.6 g/dl (12.0-15.5); LYMPH # 1.3 10^3/uL (1.5-5.0); LYMPH % 21.2 % (24.0-44.0); MEAN CORPUSCULAR HEMOGLOBIN 25.5 pg (27.0-33.0); MEAN CORPUSCULAR HGB CONC 30.8 g/dl (32.0-36.5); MONO # 0.6 10^3/uL (0.0-0.8); MONO % 9.8 % (2.0-8.0); NEUTROPHILS # 3.8 10^3/uL (1.5-8.5); NEUTROPHILS % 63.8 % (36.0-66.0); PLATELET COUNT, AUTOMATED 215 10^3/uL (150-450); RED BLOOD COUNT 3.76 10^6/uL (4.00-5.40); WHITE BLOOD COUNT 5.9 10^3/uL (4.0-10.0)
[2023-02-07 06:42] LABS: CALCIUM LEVEL 8.8 MG/DL (8.3-10.6); CREATININE FOR GFR 2.29 MG/DL (0.55-1.30); GLOMERULAR FILTRATION RATE 22.1 (>39); MAGNESIUM LEVEL 2.2 MG/DL (1.8-2.4); POTASSIUM SERUM 4.3 MMOL/L (3.5-5.1)
[2023-02-07] MEDS: oxyBUTYnin *DITROPAN XL* 5 MG TABCR PO SCH (09:00)
[2023-02-07] MEDS: OLOPATADINE 0.1% OPHTH SOL 5ML(PATANOL) OU SCH ×2 (09:09→22:26)
[2023-02-07] MEDS: INSULIN LISPRO (NovoLOG) PER UNIT SC SCH ×4 (09:09→21:00)
[2023-02-07] MEDS: BUMETANIDE 1 MG TAB PO SCH (10:05)
[2023-02-07] MEDS ORDERED: NS 1,000 ML IV ONE (10:05)
[2023-02-07] MEDS: dilTIAZem **CD** 180MG CAP PO SCH (10:05)
[2023-02-07] MEDS: POTASSIUM CHLORIDE 10MEQ SR TABLET PO SCH ×2 (10:18→22:26)
[2023-02-07] MEDS: SUCRALFATE 1 GM TAB PO SCH ×2 (10:18→22:25)
[2023-02-07] MEDS: MAGNESIUM OXIDE 400MG TAB (MAG-OX) PO SCH ×3 (10:19→22:26)
[2023-02-07] MEDS: APIXABAN 5 MG TAB (ELIQUIS) PO SCH ×2 (10:19→22:25)
[2023-02-07] MEDS: ACETAMINOPHEN TAB 650MG DOSE (2X325MG) PO PRN (10:58)
[2023-02-07] MEDS: CALCIUM CARBONATE 500 MG CHEW U/D PO PRN (18:51)
[2023-02-07] MEDS: ATORVASTATIN 10 MG TAB PO SCH (22:25)
[2023-02-07] MEDS: CETIRIZINE (ZyrTEC) 10 MG TAB PO SCH (22:25)
[2023-02-07] MEDS: FENOFIBRATE 145MG TABLET (TRICOR) PO SCH (22:26)
[2023-02-08 06:00] VITALS: BP 111/67; TEMP 97.9; O2SAT 97
[2023-02-08] MEDS: LEVOTHYROXINE 75MCG TABLET (0.075MG) PO SCH (06:00)
[2023-02-08 06:05] LABS: BASO % 0.4 % (0.0-1.0); EOS # 0.2 10^3/uL (0.0-0.5); EOS % 2.9 % (0.0-3.0); HEMATOCRIT 29.7 % (36.0-47.0); HEMOGLOBIN 9.3 g/dl (12.0-15.5); LYMPH # 1.1 10^3/uL (1.5-5.0); LYMPH % 16.4 % (24.0-44.0); MEAN CORPUSCULAR HEMOGLOBIN 25.5 pg (27.0-33.0); MEAN CORPUSCULAR HGB CONC 31.3 g/dl (32.0-36.5); MEAN CORPUSCULAR VOLUME 81.6 fl (80.0-96.0); MONO # 0.7 10^3/uL (0.0-0.8); MONO % 9.7 % (2.0-8.0); NEUTROPHILS # 4.8 10^3/uL (1.5-8.5); NEUTROPHILS % 70.2 % (36.0-66.0); PLATELET COUNT, AUTOMATED 206 10^3/uL (150-450); RED BLOOD COUNT 3.64 10^6/uL (4.00-5.40); WHITE BLOOD COUNT 6.9 10^3/uL (4.0-10.0)
[2023-02-08 06:29] LABS: CALCIUM LEVEL 8.7 MG/DL (8.3-10.6); CREATININE FOR GFR 1.91 MG/DL (0.55-1.30); GLOMERULAR FILTRATION RATE 27.3 (>39); MAGNESIUM LEVEL 2.1 MG/DL (1.8-2.4); POTASSIUM SERUM 4.4 MMOL/L (3.5-5.1)
[2023-02-08 08:45] VITALS: BP 108/63
[2023-02-08] MEDS: INSULIN LISPRO (NovoLOG) PER UNIT SC SCH ×4 (08:47→21:00)
[2023-02-08] MEDS: ACETAMINOPHEN TAB 650MG DOSE (2X325MG) PO PRN (09:34)
[2023-02-08] MEDS: OLOPATADINE 0.1% OPHTH SOL 5ML(PATANOL) OU SCH ×2 (09:34→21:37)
[2023-02-08] MEDS: oxyBUTYnin *DITROPAN XL* 5 MG TABCR PO SCH ×3 (09:35→21:37)
[2023-02-08] MEDS: APIXABAN 5 MG TAB (ELIQUIS) PO SCH ×2 (09:35→21:37)
[2023-02-08] MEDS: MAGNESIUM OXIDE 400MG TAB (MAG-OX) PO SCH ×3 (09:35→21:37)
[2023-02-08] MEDS: POTASSIUM CHLORIDE 10MEQ SR TABLET PO SCH ×2 (09:35→21:37)
[2023-02-08] MEDS: SUCRALFATE 1 GM TAB PO SCH ×2 (09:35→21:36)
[2023-02-08] MEDS: CALCIUM CARBONATE 500 MG CHEW U/D PO PRN (09:44)
[2023-02-08] MEDS: dilTIAZem 30 MG TAB PO SCH ×3 (09:45→21:36)
[2023-02-08] MEDS: PANTOPRAZOLE 40MG TAB (PROTONIX) PO SCH (10:18)
[2023-02-08] MEDS: BUMETANIDE 1 MG TAB PO SCH ×2 (10:18→17:00)
[2023-02-08 14:00] VITALS: BP 108/61; TEMP 97.9; O2SAT 94
[2023-02-08 19:58] VITALS: BP 106/59; TEMP 98.6; O2SAT 97
[2023-02-08] MEDS: FENOFIBRATE 145MG TABLET (TRICOR) PO SCH (21:00)
[2023-02-08] MEDS: METOPROLOL SUCC *XL* 25MG TAB (TopROL *XL*) PO SCH (21:00)
[2023-02-08] MEDS: ATORVASTATIN 10 MG TAB PO SCH (21:37)
[2023-02-08] MEDS: CETIRIZINE (ZyrTEC) 10 MG TAB PO SCH (21:37)
[2023-02-09] MEDS: LEVOTHYROXINE 75MCG TABLET (0.075MG) PO SCH (05:20)
[2023-02-09 06:00] VITALS: BP 106/60; TEMP 97.2; O2SAT 96
[2023-02-09 06:17] LABS: BASO # 0.1 10^3/uL (0.0-0.2); BASO % 0.7 % (0.0-1.0); EOS # 0.2 10^3/uL (0.0-0.5); EOS % 3.2 % (0.0-3.0); HEMATOCRIT 30.5 % (36.0-47.0); HEMOGLOBIN 9.3 g/dl (12.0-15.5); LYMPH # 1.3 10^3/uL (1.5-5.0); LYMPH % 17.5 % (24.0-44.0); MEAN CORPUSCULAR HEMOGLOBIN 25.3 pg (27.0-33.0); MEAN CORPUSCULAR HGB CONC 30.5 g/dl (32.0-36.5); MEAN CORPUSCULAR VOLUME 83.1 fl (80.0-96.0); MONO # 0.6 10^3/uL (0.0-0.8); MONO % 8.1 % (2.0-8.0); NEUTROPHILS % 70.1 % (36.0-66.0); PLATELET COUNT, AUTOMATED 222 10^3/uL (150-450); RED BLOOD COUNT 3.67 10^6/uL (4.00-5.40); WHITE BLOOD COUNT 7.2 10^3/uL (4.0-10.0)
[2023-02-09 06:31] LABS: CALCIUM LEVEL 8.9 MG/DL (8.3-10.6); CREATININE FOR GFR 1.83 MG/DL (0.55-1.30); GLOMERULAR FILTRATION RATE 28.6 (>39); POTASSIUM SERUM 4.5 MMOL/L (3.5-5.1)
[2023-02-09] MEDS: PANTOPRAZOLE 40MG TAB (PROTONIX) PO SCH (08:25)
[2023-02-09] MEDS: BUMETANIDE 1 MG TAB PO SCH ×2 (08:25→16:30)
[2023-02-09] MEDS: INSULIN LISPRO (NovoLOG) PER UNIT SC SCH ×4 (08:25→20:46)
[2023-02-09] MEDS: oxyBUTYnin *DITROPAN XL* 5 MG TABCR PO SCH ×2 (08:26→22:11)
[2023-02-09] MEDS: SUCRALFATE 1 GM TAB PO SCH ×2 (08:26→22:11)
[2023-02-09] MEDS: APIXABAN 5 MG TAB (ELIQUIS) PO SCH ×2 (08:26→22:11)
[2023-02-09] MEDS: POTASSIUM CHLORIDE 10MEQ SR TABLET PO SCH ×2 (08:26→22:11)
[2023-02-09] MEDS: MAGNESIUM OXIDE 400MG TAB (MAG-OX) PO SCH ×3 (08:26→22:11)
[2023-02-09] MEDS: OLOPATADINE 0.1% OPHTH SOL 5ML(PATANOL) OU SCH ×2 (08:27→22:12)
[2023-02-09] MEDS: dilTIAZem 30 MG TAB PO SCH ×3 (08:31→21:00)
[2023-02-09] MEDS: ACETAMINOPHEN TAB 650MG DOSE (2X325MG) PO PRN (11:42)
[2023-02-09 14:00] VITALS: BP 108/64; TEMP 97.9; O2SAT 96
[2023-02-09 20:30] VITALS: BP 88/49; TEMP 98.2; O2SAT 95
[2023-02-09] MEDS ORDERED: LR 500 ML IV ONE (20:55)
[2023-02-09 20:57] VITALS: BP 98/50
[2023-02-09] MEDS: METOPROLOL SUCC *XL* 25MG TAB (TopROL *XL*) PO SCH (21:00)
[2023-02-09] MEDS: CETIRIZINE (ZyrTEC) 10 MG TAB PO SCH (22:11)
[2023-02-09] MEDS: ATORVASTATIN 10 MG TAB PO SCH (22:11)
[2023-02-09] MEDS: FENOFIBRATE 145MG TABLET (TRICOR) PO SCH (22:11)
[2023-02-09 22:18] VITALS: BP 105/53
[2023-02-10 01:54] VITALS: BP 99/49; TEMP 98.1; O2SAT 94
[2023-02-10 05:32] VITALS: BP 108/51; TEMP 97.2; O2SAT 97
[2023-02-10 05:50] LABS: BASO % 0.6 % (0.0-1.0); EOS # 0.3 10^3/uL (0.0-0.5); EOS % 4.5 % (0.0-3.0); HEMATOCRIT 31.8 % (36.0-47.0); HEMOGLOBIN 9.6 g/dl (12.0-15.5); LYMPH # 1.2 10^3/uL (1.5-5.0); LYMPH % 18.2 % (24.0-44.0); MEAN CORPUSCULAR HEMOGLOBIN 24.8 pg (27.0-33.0); MEAN CORPUSCULAR HGB CONC 30.2 g/dl (32.0-36.5); MEAN CORPUSCULAR VOLUME 82.2 fl (80.0-96.0); MONO # 0.6 10^3/uL (0.0-0.8); MONO % 8.3 % (2.0-8.0); NEUTROPHILS # 4.5 10^3/uL (1.5-8.5); NEUTROPHILS % 67.9 % (36.0-66.0); PLATELET COUNT, AUTOMATED 214 10^3/uL (150-450); RED BLOOD COUNT 3.87 10^6/uL (4.00-5.40); WHITE BLOOD COUNT 6.6 10^3/uL (4.0-10.0)
[2023-02-10] MEDS: LEVOTHYROXINE 75MCG TABLET (0.075MG) PO SCH (05:53)
[2023-02-10 06:13] LABS: CALCIUM LEVEL 8.8 MG/DL (8.3-10.6); CREATININE FOR GFR 1.81 MG/DL (0.55-1.30); MAGNESIUM LEVEL 1.9 MG/DL (1.8-2.4); POTASSIUM SERUM 4.4 MMOL/L (3.5-5.1)
[2023-02-10] MEDS: BUMETANIDE 1 MG TAB PO SCH ×2 (09:00→15:44)
[2023-02-10] MEDS: INSULIN LISPRO (NovoLOG) PER UNIT SC SCH ×4 (09:46→20:29)
[2023-02-10] MEDS: POTASSIUM CHLORIDE 10MEQ SR TABLET PO SCH ×2 (09:50→20:01)
[2023-02-10] MEDS: FERROUS SULFATE 325MG TAB PO SCH (09:50)
[2023-02-10] MEDS: APIXABAN 5 MG TAB (ELIQUIS) PO SCH ×2 (09:50→20:00)
[2023-02-10] MEDS: SUCRALFATE 1 GM TAB PO SCH ×2 (09:50→20:00)
[2023-02-10] MEDS: MAGNESIUM OXIDE 400MG TAB (MAG-OX) PO SCH ×3 (09:51→20:00)
[2023-02-10] MEDS: OLOPATADINE 0.1% OPHTH SOL 5ML(PATANOL) OU SCH ×2 (09:51→20:01)
[2023-02-10] MEDS: oxyBUTYnin *DITROPAN XL* 5 MG TABCR PO SCH ×2 (09:51→20:01)
[2023-02-10] MEDS: PANTOPRAZOLE 40MG TAB (PROTONIX) PO SCH (09:51)
[2023-02-10 10:00] VITALS: BP 108/56
[2023-02-10] MEDS: ACETAMINOPHEN TAB 650MG DOSE (2X325MG) PO PRN (15:43)
[2023-02-10] MEDS: FENOFIBRATE 145MG TABLET (TRICOR) PO SCH (20:00)
[2023-02-10] MEDS: ATORVASTATIN 10 MG TAB PO SCH (20:01)
[2023-02-10] MEDS: CETIRIZINE (ZyrTEC) 10 MG TAB PO SCH (20:01)
[2023-02-10] MEDS: NYSTATIN 100,000 UNITS/GM TOPICAL PWD 15GM TOP SCH (20:01)
[2023-02-10 20:05] VITALS: BP 99/48
[2023-02-10] MEDS: METOPROLOL SUCC *XL* 25MG TAB (TopROL *XL*) PO SCH (20:05)
[2023-02-10 20:32] VITALS: BP 99/48; TEMP 97.5; O2SAT 94
[2023-02-11] MEDS: LEVOTHYROXINE 75MCG TABLET (0.075MG) PO SCH (05:55)
[2023-02-11 06:30] VITALS: BP 99/49; TEMP 98.1; O2SAT 94
[2023-02-11 06:37] LABS: BASO # 0.1 10^3/uL (0.0-0.2); EOS # 0.3 10^3/uL (0.0-0.5); EOS % 4.8 % (0.0-3.0); HEMATOCRIT 30.7 % (36.0-47.0); HEMOGLOBIN 9.3 g/dl (12.0-15.5); LYMPH # 1.4 10^3/uL (1.5-5.0); LYMPH % 21.9 % (24.0-44.0); MEAN CORPUSCULAR HEMOGLOBIN 25.5 pg (27.0-33.0); MEAN CORPUSCULAR HGB CONC 30.3 g/dl (32.0-36.5); MEAN CORPUSCULAR VOLUME 84.1 fl (80.0-96.0); MONO # 0.6 10^3/uL (0.0-0.8); MONO % 8.9 % (2.0-8.0); NEUTROPHILS % 63.1 % (36.0-66.0); PLATELET COUNT, AUTOMATED 240 10^3/uL (150-450); RED BLOOD COUNT 3.65 10^6/uL (4.00-5.40); WHITE BLOOD COUNT 6.3 10^3/uL (4.0-10.0)
[2023-02-11 07:01] LABS: CALCIUM LEVEL 8.6 MG/DL (8.3-10.6); CREATININE FOR GFR 1.79 MG/DL (0.55-1.30); GLOMERULAR FILTRATION RATE 29.4 (>39); POTASSIUM SERUM 4.9 MMOL/L (3.5-5.1)
[2023-02-11] MEDS ORDERED: MIDO2.5T PO (08:30)
[2023-02-11] MEDS: BUMETANIDE 1 MG TAB PO SCH (09:00)
[2023-02-11] MEDS ORDERED: CYANOCOBALAMIN 250 MCG TABLET PO SCH (09:00)
[2023-02-11] MEDS: INSULIN LISPRO (NovoLOG) PER UNIT SC SCH (09:03)
[2023-02-11] MEDS: APIXABAN 5 MG TAB (ELIQUIS) PO SCH (09:04)
[2023-02-11] MEDS: SUCRALFATE 1 GM TAB PO SCH (09:05)
[2023-02-11] MEDS: NYSTATIN 100,000 UNITS/GM TOPICAL PWD 15GM TOP SCH (09:05)
[2023-02-11] MEDS: PANTOPRAZOLE 40MG TAB (PROTONIX) PO SCH (09:05)
[2023-02-11] MEDS: oxyBUTYnin *DITROPAN XL* 5 MG TABCR PO SCH (09:05)
[2023-02-11] MEDS: OLOPATADINE 0.1% OPHTH SOL 5ML(PATANOL) OU SCH (09:05)
[2023-02-11] MEDS: FERROUS SULFATE 325MG TAB PO SCH (09:05)
[2023-02-11] MEDS: MAGNESIUM OXIDE 400MG TAB (MAG-OX) PO SCH (09:05)
[2023-02-11] MEDS: POTASSIUM CHLORIDE 10MEQ SR TABLET PO SCH (09:05)
[2023-02-11] MEDS ORDERED: MIDODRINE 2.5 MG TAB PO SCH (12:00)
== END 2023-02-11 11:24 ==
LOC: EDBD 23:56 → M ED 23:56 → INTOOBSV 02-05 14:40 → M ED INP 02-05 14:40 → M MSPAV 02-05 17:47
PROVIDERS: ADMIT Student in an Organized Health Care Education/Training Program; ATTEND Internal Medicine Nephrology
DX: R26.89 Other abnormalities of gait and mobility (principal); R53.81 Other malaise; S09.90XA Unspecified injury of head, initial encounter; W19.XXXA Unspecified fall, initial encounter; Y92.199 Unspecified place in other specified residential institution as the place of occurrence of the external cause; Y99.9 Unspecified external cause status; I95.9 Hypotension, unspecified; N17.9 Acute kidney failure, unspecified; N18.30 Chronic kidney disease, stage 3 unspecified; I50.30 Unspecified diastolic (congestive) heart failure; E66.01 Morbid (severe) obesity due to excess calories; I27.81 Cor pulmonale (chronic); I25.10 Atherosclerotic heart disease of native coronary artery without angina pectoris; Z98.61 Coronary angioplasty status; I48.0 Paroxysmal atrial fibrillation; Z95.810 Presence of automatic (implantable) cardiac defibrillator; I44.7 Left bundle-branch block, unspecified; I34.1 Nonrheumatic mitral (valve) prolapse; Q21.12 Patent foramen ovale; E78.5 Hyperlipidemia, unspecified; E03.9 Hypothyroidism, unspecified; K21.9 Gastro-esophageal reflux disease without esophagitis; E11.9 Type 2 diabetes mellitus without complications; K44.9 Diaphragmatic hernia without obstruction or gangrene; K22.70 Barrett's esophagus without dysplasia; E83.42 Hypomagnesemia; D63.8 Anemia in other chronic diseases classified elsewhere; Z79.01 Long term (current) use of anticoagulants; Z79.4 Long term (current) use of insulin; Z79.899 Other long term (current) drug therapy; Z88.2 Allergy status to sulfonamides; Z88.8 Allergy status to other drugs, medicaments and biological substances
CPT/HCPCS: 36415; 70450; 72125; 72190; 73564; 80048; 80053; 82306; 82728; 83550; 83735; 84436; 84443; 85025; 85610; 87631; 87635; 93005; 96374; 96376; 97161; 97165; 97530; 97535; 99285; G0378; J1815

== ENCOUNTER → 2023-02-13 | Outpatient (REF) ==
[~2023-02-13] MED LIST changes: +ACET-907 PO; +BISA5TAB15 PO; +BUME2TAB3 PO; +CETI-24 PO; +DOCU100C16 PO; +METO10TA2 PO; +MIDO2.5T PO; +MILKSUS3 PO; +MIRA1POW3 PO; +MUPI2OI EXT; +OLOP5DRO17 OU; +ONDA-195 PO; +POTA-149 PO; +RISATAB3 PO; +SUCR1TAB56 PO; +SYNT75TA PO; +TUMS500C PO; +VERI5TAB PO
[2023-02-13 07:59] LABS: HEMATOCRIT 31.9 % (36.0-47.0); HEMOGLOBIN 9.6 g/dl (12.0-15.5); MEAN CORPUSCULAR HEMOGLOBIN 25.1 pg (27.0-33.0); MEAN CORPUSCULAR HGB CONC 30.1 g/dl (32.0-36.5); MEAN CORPUSCULAR VOLUME 83.3 fl (80.0-96.0); PLATELET COUNT, AUTOMATED 259 10^3/uL (150-450); RED BLOOD COUNT 3.83 10^6/uL (4.00-5.40); WHITE BLOOD COUNT 6.7 10^3/uL (4.0-10.0)
[2023-02-13 08:50] LABS: CALCIUM LEVEL 9.2 MG/DL (8.3-10.6); CREATININE FOR GFR 1.7 MG/DL (0.55-1.30); GLOMERULAR FILTRATION RATE 31.2 (>39); POTASSIUM SERUM 4.9 MMOL/L (3.5-5.1)
== END ==
PROVIDERS: ATTEND Physician Assistant
DX: I48.91 Unspecified atrial fibrillation (principal)

== ENCOUNTER → 2023-02-20 | Outpatient (REF) ==
[2023-02-20 08:24] LABS: HEMATOCRIT 32.3 % (36.0-47.0); HEMOGLOBIN 9.6 g/dl (12.0-15.5); MEAN CORPUSCULAR HEMOGLOBIN 24.8 pg (27.0-33.0); MEAN CORPUSCULAR HGB CONC 29.7 g/dl (32.0-36.5); MEAN CORPUSCULAR VOLUME 83.5 fl (80.0-96.0); PLATELET COUNT, AUTOMATED 260 10^3/uL (150-450); RED BLOOD COUNT 3.87 10^6/uL (4.00-5.40); WHITE BLOOD COUNT 5.1 10^3/uL (4.0-10.0)
[2023-02-20 08:51] LABS: CALCIUM LEVEL 8.9 MG/DL (8.3-10.6); CREATININE FOR GFR 2.01 MG/DL (0.55-1.30); GLOMERULAR FILTRATION RATE 25.7 (>39); POTASSIUM SERUM 3.9 MMOL/L (3.5-5.1)
== END ==
PROVIDERS: ATTEND Physician Assistant
DX: I48.91 Unspecified atrial fibrillation (principal)

== ENCOUNTER → 2023-03-04 | Outpatient (REF) ==
[2023-03-04 09:17] LABS: HEMATOCRIT 33.2 % (36.0-47.0); HEMOGLOBIN 9.9 g/dl (12.0-15.5); MEAN CORPUSCULAR HEMOGLOBIN 25.3 pg (27.0-33.0); MEAN CORPUSCULAR HGB CONC 29.8 g/dl (32.0-36.5); MEAN CORPUSCULAR VOLUME 84.7 fl (80.0-96.0); PLATELET COUNT, AUTOMATED 330 10^3/uL (150-450); RED BLOOD COUNT 3.92 10^6/uL (4.00-5.40); WHITE BLOOD COUNT 5.8 10^3/uL (4.0-10.0)
[2023-03-04 09:38] LABS: CALCIUM LEVEL 9.3 MG/DL (8.3-10.6); CREATININE FOR GFR 2.2 MG/DL (0.55-1.30); GLOMERULAR FILTRATION RATE 23.2 (>39); POTASSIUM SERUM 4.2 MMOL/L (3.5-5.1)
== END ==
PROVIDERS: ATTEND Physician Assistant
DX: I48.91 Unspecified atrial fibrillation (principal)

== ENCOUNTER → 2023-03-31 | Outpatient (REF) | payer MEDICARE, BC, MEDICAID ==
[2023-03-31 16:12] LABS: CALCIUM LEVEL 9.1 MG/DL (8.3-10.6); CREATININE FOR GFR 2.47 MG/DL (0.55-1.30); GLOMERULAR FILTRATION RATE 20.3 (>39); POTASSIUM SERUM 4.3 MMOL/L (3.5-5.1)
== END ==
PROVIDERS: ATTEND Physician Assistant
DX: E11.9 Type 2 diabetes mellitus without complications (principal)

== ENCOUNTER → 2023-04-01 | Outpatient (REF) | payer MEDICARE, BC, MEDICAID ==
[2023-04-01 11:09] LABS: CALCIUM LEVEL 9.5 MG/DL (8.3-10.6); CREATININE FOR GFR 2.53 MG/DL (0.55-1.30); GLOMERULAR FILTRATION RATE 19.7 (>39); POTASSIUM SERUM 4.4 MMOL/L (3.5-5.1)
== END ==
PROVIDERS: ATTEND Physician Assistant
DX: E11.9 Type 2 diabetes mellitus without complications (principal)

== ENCOUNTER → 2023-04-08 | Outpatient (REF) | payer MEDICARE, MEDICAID | PROVIDERS: ATTEND Internal Medicine | DX: K59.00 Constipation, unspecified (principal) ==

== ENCOUNTER → 2023-04-08 | Outpatient (REF) | payer MEDICARE, BC, MEDICAID | PROVIDERS: ATTEND Physician Assistant | DX: R11.10 Vomiting, unspecified (principal) ==

== ENCOUNTER → 2023-05-06 | Outpatient (REF) | payer MEDICARE, MEDICAID ==
[2023-05-06 11:24] LABS: HEMATOCRIT 30.6 % (36.0-47.0); HEMOGLOBIN 9.3 g/dl (12.0-15.5); MEAN CORPUSCULAR HEMOGLOBIN 25.5 pg (27.0-33.0); MEAN CORPUSCULAR HGB CONC 30.4 g/dl (32.0-36.5); MEAN CORPUSCULAR VOLUME 84.1 fl (80.0-96.0); PLATELET COUNT, AUTOMATED 293 10^3/uL (150-450); RED BLOOD COUNT 3.64 10^6/uL (4.00-5.40); WHITE BLOOD COUNT 7.5 10^3/uL (4.0-10.0)
[2023-05-06 11:50] LABS: CALCIUM LEVEL 8.9 MG/DL (8.3-10.6); CREATININE FOR GFR 2.4 MG/DL (0.55-1.30); POTASSIUM SERUM 3.8 MMOL/L (3.5-5.1)
== END ==
PROVIDERS: ATTEND Physician Assistant
DX: E11.9 Type 2 diabetes mellitus without complications (principal); Z79.899 Other long term (current) drug therapy

== ENCOUNTER 2023-05-30 12:58 | Observation (INO) | payer MEDICARE, MEDICAID ==
[~2023-05-30] VITALS: Ht 160 cm; Wt 104.6 kg
[2023-05-30] MEDS ORDERED: traMADol 50 MG TAB PO ONE (14:00)
[2023-05-30 14:35] LABS: BASO # 0.1 10^3/uL (0.0-0.2); BASO % 0.8 % (0.0-1.0); EOS # 0.2 10^3/uL (0.0-0.5); EOS % 2.5 % (0.0-3.0); HEMATOCRIT 32.8 % (36.0-47.0); HEMOGLOBIN 10.1 g/dl (12.0-15.5); LYMPH # 1.1 10^3/uL (1.5-5.0); LYMPH % 15.5 % (24.0-44.0); MEAN CORPUSCULAR HGB CONC 30.8 g/dl (32.0-36.5); MEAN CORPUSCULAR VOLUME 84.3 fl (80.0-96.0); MONO # 0.6 10^3/uL (0.0-0.8); MONO % 8.2 % (2.0-8.0); NEUTROPHILS # 5.3 10^3/uL (1.5-8.5); NEUTROPHILS % 72.6 % (36.0-66.0); PLATELET COUNT, AUTOMATED 299 10^3/uL (150-450); RED BLOOD COUNT 3.89 10^6/uL (4.00-5.40); WHITE BLOOD COUNT 7.3 10^3/uL (4.0-10.0)
[2023-05-30 14:42] LABS: ERYTHROCYTE SEDIMENTATION RATE 38 mm/hr (0-30)
[2023-05-30 15:09] LABS: CALCIUM LEVEL 9.1 MG/DL (8.3-10.6); CREATININE FOR GFR 2.37 MG/DL (0.55-1.30); GLOMERULAR FILTRATION RATE 21.3 (>39); PHOSPHORUS LEVEL 4.1 MG/DL (2.4-5.1); POTASSIUM SERUM 4.1 MMOL/L (3.5-5.1)
[2023-05-30] MEDS ORDERED: traMADol 50 MG TAB PO PRN (17:30)
[2023-05-30 17:36] LABS: RSV AMPLIFICATION NEGATIVE (NEGATIVE)
[2023-05-30] MEDS ORDERED: LOPE1CAP5 PO (18:10)
[2023-05-30] MEDS ORDERED: MIDO2.5T PO (18:10)
[2023-05-30] MEDS ORDERED: OMEP20TA2 PO (18:10)
[2023-05-30] MEDS ORDERED: SLOW142T5 PO (18:10)
[2023-05-30] MEDS ORDERED: SENN-52 PO (18:10)
[2023-05-30] MEDS ORDERED: NATE60TA13 PO (18:10)
[2023-05-30] MEDS ORDERED: BUME1TAB3 PO (18:10)
[2023-05-30] MEDS ORDERED: EQL0.65S EN (18:10)
[2023-05-30] MEDS ORDERED: LORA-1041 PO (18:10)
[2023-05-30] MEDS ORDERED: DEXTROSE 50% 50ML SYRINGE IV PRN (18:15)
[2023-05-30] MEDS ORDERED: GLUCOSE 4GM CHEW TABLET PO PRN (18:15)
[2023-05-30] MEDS ORDERED: GLUCAGON INJ 1MG VIAL SC PRN (18:15)
[2023-05-30] MEDS ORDERED: HOME MED LIST COMPLETE! XX SCH ×2 (18:20→19:20)
[2023-05-30] MEDS ORDERED: PILL CUTTER 1 EACH XX PRN (19:05)
[2023-05-30] MEDS: INSULIN LISPRO (NovoLOG) PER UNIT SC SCH (21:00)
[2023-05-30] MEDS: BUMETANIDE 1 MG TAB PO SCH (21:00)
[2023-05-30] MEDS: SUCRALFATE 1 GM TAB PO SCH (21:32)
[2023-05-30] MEDS: oxyBUTYnin *DITROPAN XL* 5 MG TABCR PO SCH (21:32)
[2023-05-30] MEDS: ACETAMINOPHEN 500 MG TAB PO SCH (21:33)
[2023-05-30] MEDS: POTASSIUM CHLORIDE 10MEQ SR TABLET PO SCH (21:35)
[2023-05-30] MEDS: ATORVASTATIN 10 MG TAB PO SCH (21:35)
[2023-05-30] MEDS: MAGNESIUM OXIDE 400MG TAB (MAG-OX) PO SCH (21:35)
[2023-05-30] MEDS: APIXABAN 5 MG TAB (ELIQUIS) PO SCH (21:36)
[2023-05-30 22:45] VITALS: BP 111/53; TEMP 97.7; O2SAT 97
[2023-05-31] MEDS: LEVOTHYROXINE 75MCG TABLET (0.075MG) PO SCH (05:28)
[2023-05-31 05:30] VITALS: BP 133/65; TEMP 97.7; O2SAT 96
[2023-05-31 07:06] LABS: BASO # 0.1 10^3/uL (0.0-0.2); BASO % 1.3 % (0.0-1.0); EOS # 0.3 10^3/uL (0.0-0.5); EOS % 4.1 % (0.0-3.0); HEMATOCRIT 31.2 % (36.0-47.0); HEMOGLOBIN 9.5 g/dl (12.0-15.5); LYMPH # 1.7 10^3/uL (1.5-5.0); LYMPH % 26.3 % (24.0-44.0); MEAN CORPUSCULAR HEMOGLOBIN 25.7 pg (27.0-33.0); MEAN CORPUSCULAR HGB CONC 30.4 g/dl (32.0-36.5); MEAN CORPUSCULAR VOLUME 84.3 fl (80.0-96.0); MONO # 0.5 10^3/uL (0.0-0.8); NEUTROPHILS # 3.8 10^3/uL (1.5-8.5); PLATELET COUNT, AUTOMATED 283 10^3/uL (150-450); WHITE BLOOD COUNT 6.3 10^3/uL (4.0-10.0)
[2023-05-31] MEDS ORDERED: NATEGLINIDE 60 MG PO SCH (07:30)
[2023-05-31 07:36] LABS: ALBUMIN 2.6 G/DL (3.2-5.2); CREATININE FOR GFR 2.29 MG/DL (0.55-1.30); GLOMERULAR FILTRATION RATE 22.1 (>39); POTASSIUM SERUM 4.2 MMOL/L (3.5-5.1)
[2023-05-31] MEDS ORDERED: VERQUVO 5 MG PO SCH (08:00)
[2023-05-31] MEDS: INSULIN LISPRO (NovoLOG) PER UNIT SC SCH ×4 (08:40→21:00)
[2023-05-31] MEDS: MIDODRINE 2.5 MG TAB PO SCH ×2 (08:41→15:23)
[2023-05-31] MEDS: OLOPATADINE 0.1% OPHTH SOL 5ML(PATANOL) OU SCH ×2 (08:41→17:00)
[2023-05-31] MEDS: OMEPRAZOLE 20MG CAP PO SCH (08:41)
[2023-05-31] MEDS: BUMETANIDE 1 MG TAB PO SCH ×2 (08:42→21:00)
[2023-05-31] MEDS: SUCRALFATE 1 GM TAB PO SCH ×2 (08:42→22:11)
[2023-05-31] MEDS: POTASSIUM CHLORIDE 10MEQ SR TABLET PO SCH ×2 (08:43→22:11)
[2023-05-31] MEDS: FERROUS SULFATE 325MG TAB PO SCH (08:43)
[2023-05-31] MEDS: MAGNESIUM OXIDE 400MG TAB (MAG-OX) PO SCH ×3 (08:43→22:10)
[2023-05-31] MEDS: oxyBUTYnin *DITROPAN XL* 5 MG TABCR PO SCH ×2 (08:43→22:10)
[2023-05-31] MEDS: APIXABAN 5 MG TAB (ELIQUIS) PO SCH ×2 (08:44→22:11)
[2023-05-31] MEDS: ACETAMINOPHEN 500 MG TAB PO SCH ×3 (08:44→22:09)
[2023-05-31] MEDS: FENOFIBRATE 145MG TABLET (TRICOR) PO SCH (08:52)
[2023-05-31] MEDS ORDERED: CETIRIZINE (ZyrTEC) 10 MG TAB PO SCH (09:00)
[2023-05-31] MEDS ORDERED: FERROUS SULFATE 300MG/5ML UDC LIQUID PO SCH (09:00)
[2023-05-31 15:24] VITALS: BP 111/65
[2023-05-31 20:21] VITALS: BP 109/65; TEMP 97; O2SAT 99
[2023-05-31] MEDS: SENOKOT S TAB PO SCH (22:07)
[2023-05-31] MEDS: ATORVASTATIN 10 MG TAB PO SCH (22:11)
[2023-06-01 05:30] VITALS: BP 110/61; TEMP 97.7; O2SAT 97
[2023-06-01] MEDS: LEVOTHYROXINE 75MCG TABLET (0.075MG) PO SCH (05:48)
[2023-06-01 07:39] LABS: HEMATOCRIT 32.2 % (36.0-47.0); HEMOGLOBIN 9.8 g/dl (12.0-15.5); MEAN CORPUSCULAR HEMOGLOBIN 25.9 pg (27.0-33.0); RED BLOOD COUNT 3.79 10^6/uL (4.00-5.40); WHITE BLOOD COUNT 7.2 10^3/uL (4.0-10.0)
[2023-06-01 07:40] LABS: BASO # 0.1 10^3/uL (0.0-0.2); BASO % 0.8 % (0.0-1.0); EOS # 0.2 10^3/uL (0.0-0.5); EOS % 3.2 % (0.0-3.0); LYMPH # 1.4 10^3/uL (1.5-5.0); MEAN CORPUSCULAR HGB CONC 30.4 g/dl (32.0-36.5); MONO # 0.7 10^3/uL (0.0-0.8); MONO % 9.1 % (2.0-8.0); NEUTROPHILS # 4.9 10^3/uL (1.5-8.5); NEUTROPHILS % 67.6 % (36.0-66.0); PLATELET COUNT, AUTOMATED 299 10^3/uL (150-450)
[2023-06-01 08:07] LABS: ALBUMIN 2.7 G/DL (3.2-5.2); CALCIUM LEVEL 8.8 MG/DL (8.3-10.6); CREATININE FOR GFR 2.22 MG/DL (0.55-1.30); GLOMERULAR FILTRATION RATE 22.9 (>39); MAGNESIUM LEVEL 2.1 MG/DL (1.8-2.4); PHOSPHORUS LEVEL 3.5 MG/DL (2.4-5.1); POTASSIUM SERUM 4.3 MMOL/L (3.5-5.1)
[2023-06-01] MEDS: MIRALAX *UNIT DOSE* 17GM PACKET PO SCH (09:00)
[2023-06-01] MEDS: ACETAMINOPHEN 500 MG TAB PO SCH ×3 (09:00→20:30)
[2023-06-01] MEDS ORDERED: traMADol 50 MG TAB PO ONE (09:00)
[2023-06-01] MEDS: INSULIN LISPRO (NovoLOG) PER UNIT SC SCH ×4 (09:11→20:31)
[2023-06-01] MEDS: oxyBUTYnin *DITROPAN XL* 5 MG TABCR PO SCH ×2 (09:12→20:30)
[2023-06-01] MEDS: APIXABAN 5 MG TAB (ELIQUIS) PO SCH ×2 (09:12→20:30)
[2023-06-01] MEDS: POTASSIUM CHLORIDE 10MEQ SR TABLET PO SCH ×2 (09:12→20:31)
[2023-06-01] MEDS: SENOKOT S TAB PO SCH ×2 (09:13→20:31)
[2023-06-01] MEDS: BUMETANIDE 1 MG TAB PO SCH ×2 (09:13→15:36)
[2023-06-01] MEDS: FENOFIBRATE 145MG TABLET (TRICOR) PO SCH (09:15)
[2023-06-01] MEDS: MIDODRINE 2.5 MG TAB PO SCH ×2 (09:15→15:36)
[2023-06-01] MEDS: OMEPRAZOLE 20MG CAP PO SCH (09:15)
[2023-06-01] MEDS: FERROUS SULFATE 325MG TAB PO SCH (09:15)
[2023-06-01] MEDS: SUCRALFATE 1 GM TAB PO SCH ×2 (09:16→20:30)
[2023-06-01] MEDS: OLOPATADINE 0.1% OPHTH SOL 5ML(PATANOL) OU SCH ×2 (09:16→18:16)
[2023-06-01] MEDS: MAGNESIUM OXIDE 400MG TAB (MAG-OX) PO SCH ×3 (09:18→20:30)
[2023-06-01 13:54] VITALS: BP 111/61; TEMP 97.3; O2SAT 98
[2023-06-01 20:18] VITALS: BP 92/50; TEMP 97.5; O2SAT 96
[2023-06-01] MEDS: ATORVASTATIN 10 MG TAB PO SCH (20:30)
[2023-06-01 20:31] VITALS: BP 102/64
[2023-06-02 05:19] VITALS: BP 95/54; TEMP 97.5; O2SAT 97
[2023-06-02] MEDS: LEVOTHYROXINE 75MCG TABLET (0.075MG) PO SCH (05:28)
[2023-06-02 05:32] VITALS: BP 106/60
[2023-06-02 06:41] LABS: BASO # 0.1 10^3/uL (0.0-0.2); BASO % 0.9 % (0.0-1.0); EOS # 0.2 10^3/uL (0.0-0.5); HEMATOCRIT 31.4 % (36.0-47.0); HEMOGLOBIN 9.7 g/dl (12.0-15.5); LYMPH # 1.3 10^3/uL (1.5-5.0); LYMPH % 17.6 % (24.0-44.0); MEAN CORPUSCULAR HEMOGLOBIN 26.1 pg (27.0-33.0); MEAN CORPUSCULAR HGB CONC 30.9 g/dl (32.0-36.5); MEAN CORPUSCULAR VOLUME 84.6 fl (80.0-96.0); MONO # 0.6 10^3/uL (0.0-0.8); MONO % 8.3 % (2.0-8.0); NEUTROPHILS # 5.3 10^3/uL (1.5-8.5); NEUTROPHILS % 69.9 % (36.0-66.0); PLATELET COUNT, AUTOMATED 284 10^3/uL (150-450); RED BLOOD COUNT 3.71 10^6/uL (4.00-5.40); WHITE BLOOD COUNT 7.6 10^3/uL (4.0-10.0)
[2023-06-02 07:15] LABS: ALBUMIN 2.7 G/DL (3.2-5.2); CREATININE FOR GFR 2.08 MG/DL (0.55-1.30); GLOMERULAR FILTRATION RATE 24.7 (>39); MAGNESIUM LEVEL 2.1 MG/DL (1.8-2.4); PHOSPHORUS LEVEL 3.3 MG/DL (2.4-5.1); POTASSIUM SERUM 4.4 MMOL/L (3.5-5.1)
[2023-06-02] MEDS: SUCRALFATE 1 GM TAB PO SCH (08:09)
[2023-06-02] MEDS: POTASSIUM CHLORIDE 10MEQ SR TABLET PO SCH (08:09)
[2023-06-02] MEDS: SENOKOT S TAB PO SCH ×2 (08:10→08:18)
[2023-06-02] MEDS: ACETAMINOPHEN 500 MG TAB PO SCH (08:10)
[2023-06-02] MEDS: FERROUS SULFATE 325MG TAB PO SCH (08:11)
[2023-06-02] MEDS: MAGNESIUM OXIDE 400MG TAB (MAG-OX) PO SCH (08:11)
[2023-06-02] MEDS: OMEPRAZOLE 20MG CAP PO SCH (08:11)
[2023-06-02] MEDS: MIDODRINE 2.5 MG TAB PO SCH (08:11)
[2023-06-02] MEDS: BUMETANIDE 1 MG TAB PO SCH (08:11)
[2023-06-02] MEDS: oxyBUTYnin *DITROPAN XL* 5 MG TABCR PO SCH (08:11)
[2023-06-02] MEDS: APIXABAN 5 MG TAB (ELIQUIS) PO SCH (08:12)
[2023-06-02] MEDS: FENOFIBRATE 145MG TABLET (TRICOR) PO SCH (08:12)
[2023-06-02] MEDS: INSULIN LISPRO (NovoLOG) PER UNIT SC SCH ×2 (08:12→12:00)
[2023-06-02] MEDS: MIRALAX *UNIT DOSE* 17GM PACKET PO SCH (08:12)
[2023-06-02] MEDS: OLOPATADINE 0.1% OPHTH SOL 5ML(PATANOL) OU SCH (08:13)
[2023-06-02 08:30] VITALS: BP 102/58; TEMP 96.8
[2023-06-02] MEDS ORDERED: DOCUSATE SODIUM 100MG CAPSULE PO SCH (09:00)
[2023-06-02] MEDS ORDERED: TRAM50TA2 PO (11:23)
[2023-06-02] MEDS ORDERED: MIDODRINE 2.5 MG TAB PO SCH (12:00)
== END 2023-06-02 13:45 ==
LOC: M ED 12:58 → EDBD 12:58 → M ED INP 17:26 → M MS5PR 22:45
PROVIDERS: ADMIT General Practice; ATTEND Internal Medicine Nephrology
DX: M25.562 Pain in left knee (principal); E66.01 Morbid (severe) obesity due to excess calories; Z91.81 History of falling; E11.9 Type 2 diabetes mellitus without complications; I10 Essential (primary) hypertension; N18.9 Chronic kidney disease, unspecified; E03.9 Hypothyroidism, unspecified; R26.89 Other abnormalities of gait and mobility; R53.81 Other malaise; I48.0 Paroxysmal atrial fibrillation; Z98.61 Coronary angioplasty status; Z95.818 Presence of other cardiac implants and grafts; Z79.01 Long term (current) use of anticoagulants; Z79.899 Other long term (current) drug therapy; Z79.4 Long term (current) use of insulin; Z88.2 Allergy status to sulfonamides; Z88.1 Allergy status to other antibiotic agents; Z88.8 Allergy status to other drugs, medicaments and biological substances
CPT/HCPCS: 36415; 73552; 73564; 73590; 80048; 80069; 83735; 84100; 85025; 85652; 86140; 87631; 87635; 93971; 97161; 97530; 99285; G0378; J1815

== ENCOUNTER → 2023-06-03 | Outpatient (REF) ==
[~2023-06-03] MED LIST changes: +BUME1TAB3 PO; +EQL0.65S EN; +LOPE1CAP5 PO; +LORA-1041 PO; +NATE60TA13 PO; +OMEP20TA2 PO; +SENN-52 PO; +SLOW142T5 PO; +TRAM50TA2 PO
[2023-06-03 11:39] LABS: HEMATOCRIT 30.8 % (36.0-47.0); HEMOGLOBIN 9.7 g/dl (12.0-15.5); MEAN CORPUSCULAR HEMOGLOBIN 26.1 pg (27.0-33.0); MEAN CORPUSCULAR HGB CONC 31.5 g/dl (32.0-36.5); MEAN CORPUSCULAR VOLUME 82.8 fl (80.0-96.0); PLATELET COUNT, AUTOMATED 268 10^3/uL (150-450); RED BLOOD COUNT 3.72 10^6/uL (4.00-5.40); WHITE BLOOD COUNT 8.2 10^3/uL (4.0-10.0)
[2023-06-03 12:10] LABS: ALBUMIN 2.6 G/DL (3.2-5.2); BILIRUBIN,DIRECT 0.4 MG/DL (<0.4); BILIRUBIN,TOTAL 0.8 MG/DL (0.3-1.2); CALCIUM LEVEL 9.1 MG/DL (8.3-10.6); CREATININE FOR GFR 1.93 MG/DL (0.55-1.30); GLOMERULAR FILTRATION RATE 26.9 (>39); POTASSIUM SERUM 3.9 MMOL/L (3.5-5.1); TOTAL PROTEIN 5.1 G/DL (5.7-8.2)
[2023-06-03 12:11] LABS: THYROID STIMULATING HORMONE 2.269 uIU/ML (0.55-4.78)
== END ==
PROVIDERS: ATTEND Internal Medicine
DX: I48.91 Unspecified atrial fibrillation (principal)

== ENCOUNTER → 2023-06-10 | Outpatient (REF) ==
[2023-06-10 11:51] LABS: HEMATOCRIT 33.6 % (36.0-47.0); HEMOGLOBIN 10.2 g/dl (12.0-15.5); MEAN CORPUSCULAR HEMOGLOBIN 25.8 pg (27.0-33.0); MEAN CORPUSCULAR HGB CONC 30.4 g/dl (32.0-36.5); MEAN CORPUSCULAR VOLUME 84.8 fl (80.0-96.0); PLATELET COUNT, AUTOMATED 329 10^3/uL (150-450); RED BLOOD COUNT 3.96 10^6/uL (4.00-5.40); WHITE BLOOD COUNT 6.6 10^3/uL (4.0-10.0)
[2023-06-10 12:22] LABS: CALCIUM LEVEL 9.6 MG/DL (8.3-10.6); CREATININE FOR GFR 2.17 MG/DL (0.55-1.30); GLOMERULAR FILTRATION RATE 23.5 (>39); POTASSIUM SERUM 3.6 MMOL/L (3.5-5.1)
== END ==
PROVIDERS: ATTEND Physician Assistant
DX: E78.5 Hyperlipidemia, unspecified (principal)

== ENCOUNTER → 2023-07-17 | Outpatient (REF) ==
[2023-07-17 11:32] LABS: HEMATOCRIT 30.5 % (36.0-47.0); HEMOGLOBIN 9.2 g/dl (12.0-15.5); MEAN CORPUSCULAR HEMOGLOBIN 26.4 pg (27.0-33.0); MEAN CORPUSCULAR HGB CONC 30.2 g/dl (32.0-36.5); MEAN CORPUSCULAR VOLUME 87.4 fl (80.0-96.0); PLATELET COUNT, AUTOMATED 262 10^3/uL (150-450); RED BLOOD COUNT 3.49 10^6/uL (4.00-5.40); WHITE BLOOD COUNT 6.1 10^3/uL (4.0-10.0)
== END ==
PROVIDERS: ATTEND Internal Medicine
DX: D64.9 Anemia, unspecified (principal)

== ENCOUNTER → 2023-10-30 | Outpatient (REF) | payer MEDICARE, MEDICAID ==
[~2023-10-30] MED LIST changes: -MIRA1POW3 PO; +MIRA33506 PO; -POTA10CA60 PO; +POTA10CA70 PO
[2023-10-30 10:04] LABS: BASO # 0.1 10^3/uL (0.0-0.2); BASO % 1.4 % (0.0-1.0); EOS # 0.3 10^3/uL (0.0-0.5); EOS % 3.8 % (0.0-3.0); HEMATOCRIT 30.8 % (36.0-47.0); HEMOGLOBIN 9.3 g/dl (12.0-15.5); LYMPH # 1.5 10^3/uL (1.5-5.0); LYMPH % 21.4 % (24.0-44.0); MEAN CORPUSCULAR HEMOGLOBIN 26.8 pg (27.0-33.0); MEAN CORPUSCULAR HGB CONC 30.2 g/dl (32.0-36.5); MEAN CORPUSCULAR VOLUME 88.8 fl (80.0-96.0); MONO # 0.8 10^3/uL (0.0-0.8); MONO % 10.4 % (2.0-8.0); NEUTROPHILS # 4.5 10^3/uL (1.5-8.5); NEUTROPHILS % 62.3 % (36.0-66.0); PLATELET COUNT, AUTOMATED 240 10^3/uL (150-450); RED BLOOD COUNT 3.47 10^6/uL (4.00-5.40); WHITE BLOOD COUNT 7.2 10^3/uL (4.0-10.0)
[2023-10-30 10:22] LABS: CPK CREATINE PHOSPHOKINASE 32 U/L (34-145); HEMOGLOBIN A1c 7.2 % (4.0-6.0)
[2023-10-30 10:23] LABS: ALBUMIN 2.8 G/DL (3.2-5.2); ALKALINE PHOSPHATASE 83 U/L (46-116); ALT/SGPT < 9 U/L (7.0-40); AST/SGOT 15 U/L (<34); BILIRUBIN,TOTAL 0.6 MG/DL (0.3-1.2); BLOOD UREA NITROGEN 28 MG/DL (9-23); CALCIUM LEVEL 9.1 MG/DL (8.3-10.6); CARBON DIOXIDE LEVEL 23 MMOL/L (20-31); CHLORIDE LEVEL 107 MMOL/L (98-107); CREATININE FOR GFR 1.84 MG/DL (0.55-1.30); GLOMERULAR FILTRATION RATE 28.4 (>39); GLUCOSE, FASTING 175 MG/DL (74-106); POTASSIUM SERUM 4.6 MMOL/L (3.5-5.1); SODIUM LEVEL 139 MMOL/L (136-145); TOTAL PROTEIN 5.1 G/DL (5.7-8.2)
[2023-10-30 10:31] LABS: CK-MB VALUE MASS 1.4 NG/ML (<3.6); MB/CK RELATIVE INDEX 4.37 (< OR =4)
[2023-10-30 10:35] LABS: FREE T4 1.33 NG/DL (0.89-1.76)
[2023-10-30 10:42] LABS: THYROID STIMULATING HORMONE 4.582 uIU/ML (0.55-4.78)
== END ==
PROVIDERS: ATTEND Internal Medicine Cardiovascular Disease
DX: E11.9 Type 2 diabetes mellitus without complications (principal); E78.5 Hyperlipidemia, unspecified; D64.9 Anemia, unspecified

== ENCOUNTER → 2023-11-24 | Outpatient (REF) | payer MEDICARE, MEDICAID ==
[2023-11-24 15:13] LABS: APPEARANCE, URINE CLOUDY (CLEAR); BACTERIA, URINE AUTO 1+ (NEGATIVE); BILIRUBIN, URINE AUTO NEGATIVE (NEGATIVE); BLOOD, URINE BLOOD 2+ (NEGATIVE); COLOR, URINE YELLOW (YELLOW); GLUCOSE, URINE (UA) AUTO NEGATIVE (NEGATIVE); KETONE, URINE AUTO NEGATIVE (NEGATIVE); LEUKOCYTE ESTERASE, URINE AUTO 3+ (NEGATIVE); MUCUS, URINE SMALL (NEGATIVE); NITRITE, URINE AUTO NEGATIVE (NEGATIVE); PROTEIN, URINE AUTO 1+ mg/dL (NEGATIVE); RBC, URINE AUTO 20 /HPF (0-3); SPECIFIC GRAVITY URINE AUTO 1.012 (1.002-1.035); SQUAMOUS EPITHELIAL CELL UR AU 4 /HPF (0-6); UROBILINOGEN, URINE AUTO 0.2 mg/dL (0.0-2.0); WBC, URINE AUTO TNTC /HPF (0-3)
== END ==
PROVIDERS: ATTEND Nurse Practitioner Family
DX: N39.0 Urinary tract infection, site not specified (principal)

== ENCOUNTER 2024-01-23 11:08 | Emergency (ER) | payer MEDICARE, MEDICAID ==
[~2024-01-23] VITALS: Ht 160 cm; Wt 109.1 kg
[~2024-01-23 11:08] MED LIST changes: -EQL0.65S EN; +EQL0.65S NARES
[2024-01-23 12:39] LABS: BASO # 0.1 10^3/uL (0.0-0.2); BASO % 0.7 % (0.0-1.0); EOS % 0.5 % (0.0-3.0); HEMATOCRIT 35.5 % (36.0-47.0); HEMOGLOBIN 10.8 g/dl (12.0-15.5); LYMPH # 0.8 10^3/uL (1.5-5.0); LYMPH % 9.3 % (24.0-44.0); MEAN CORPUSCULAR HEMOGLOBIN 26.5 pg (27.0-33.0); MEAN CORPUSCULAR HGB CONC 30.4 g/dl (32.0-36.5); MONO # 0.8 10^3/uL (0.0-0.8); MONO % 9.5 % (2.0-8.0); NEUTROPHILS # 6.7 10^3/uL (1.5-8.5); NEUTROPHILS % 79.3 % (36.0-66.0); PLATELET COUNT, AUTOMATED 302 10^3/uL (150-450); RED BLOOD COUNT 4.08 10^6/uL (4.00-5.40); WHITE BLOOD COUNT 8.4 10^3/uL (4.0-10.0)
[2024-01-23 13:11] LABS: CK-MB VALUE MASS 2.2 NG/ML (<3.6)
[2024-01-23 13:18] LABS: ALBUMIN 3.5 G/DL (3.2-5.2); BILIRUBIN,DIRECT 0.6 MG/DL (<0.4); BILIRUBIN,TOTAL 1.2 MG/DL (0.3-1.2); CREATININE FOR GFR 1.81 MG/DL (0.55-1.30); GLOMERULAR FILTRATION RATE 28.9 (>39); MB/CK RELATIVE INDEX 2.93 (< OR =4); POTASSIUM SERUM 6.5 MMOL/L (3.5-5.1); TOTAL PROTEIN 5.9 G/DL (5.7-8.2)
[2024-01-23] MEDS ORDERED: METOPROLOL 5 MG/5 ML VIAL IV PRN (13:35)
[2024-01-23] MEDS: ONDANSETRON 4MG 2ML VIAL IV ONE (13:44)
[2024-01-23] MEDS: ASPIRIN 81MG CHEW TABLET PO ONE (13:46)
[2024-01-23] MEDS: MORPHINE 4 MG/ML 1ML VIAL IV PRN (13:46)
[2024-01-23 13:54] LABS: INR 2.48; PARTIAL THROMBOPLASTIN TIME 34.4 SECONDS (24.8-34.2); PROTHROMBIN TIME 25.9 SECONDS (12.5-14.5)
[2024-01-23] MEDS: MORPHINE 4 MG/ML 1ML VIAL IV ONE (13:55)
[2024-01-23] MEDS: PATIROMER SORBITEX CALCIUM 8.4 GM POWDER PACKET (VELTASSA) PO ONE (13:57)
[2024-01-23 13:59] LABS: MB/CK RELATIVE INDEX 2.94 (< OR =4)
[2024-01-23 14:01] LABS: POTASSIUM SERUM 6.3 MMOL/L (3.5-5.1)
[2024-01-23] MEDS ORDERED: NITROGLYCERIN 0.4MG SUBL TABLET SL PRN (14:20)
[2024-01-23] MEDS: FUROSEMIDE 40MG/4ML VIAL IV ONE (14:31)
[2024-01-23 14:41] LABS: MAGNESIUM LEVEL 1.9 MG/DL (1.8-2.4)
[2024-01-23] MEDS: cefTRIAXone SOD 1 GM in D5W MINI-BAG PLUS 50 ML IV ONE (16:08)
[2024-01-23 16:12] LABS: CK-MB VALUE MASS 2.4 NG/ML (<3.6); MB/CK RELATIVE INDEX 3.42 (< OR =4); POTASSIUM SERUM 6.2 MMOL/L (3.5-5.1)
[2024-01-24 00:40] LABS: INR 2.17; PARTIAL THROMBOPLASTIN TIME 37.7 SECONDS (24.8-34.2); PROTHROMBIN TIME 23.4 SECONDS (12.5-14.5)
[2024-01-24] MEDS ORDERED: GLUCOSE 4 GM CHEW PO PRN (01:05)
[2024-01-24] MEDS ORDERED: GLUCAGON INJ 1MG VIAL SC PRN (01:05)
[2024-01-24] MEDS ORDERED: DEXTROSE 50% 50ML SYRINGE IV PRN (01:05)
[2024-01-24] MEDS ORDERED: ONDANSETRON 4MG 2ML VIAL IV PRN (01:15)
[2024-01-24] MEDS: CALCIUM GLUCONATE 1,000 MG in D5W MINI-BAG PLUS 100 ML IV ONE (01:26)
[2024-01-24] MEDS: DEXTROSE 50% 50ML SYRINGE IV STA (01:27)
[2024-01-24] MEDS: HumuLIN R (REGULAR) INSULIN (NovoLIN R) **100U/ML** PER UNIT IV STA (01:28)
[2024-01-24] MEDS: metroNIDAZOLE 500 MG in IV 1 EA IV SCH (01:28)
[2024-01-24] MEDS: MORPHINE 2 MG/ML 1ML VIAL IV ONE (01:32)
[2024-01-24] MEDS: CIPROFLOXACIN 400 MG in IV 1 EA IV SCH (02:46)
[2024-01-24] MEDS ORDERED: CVS13CRE TOP (03:59)
[2024-01-24] MEDS ORDERED: [UNRECOGNIZED DRUG - OTHER] PO (03:59)
[2024-01-24] MEDS ORDERED: ONDA-83 PO (03:59)
[2024-01-24] MEDS ORDERED: CLAR10CA3 PO (03:59)
[2024-01-24] MEDS ORDERED: CITA20TA6 PO (03:59)
[2024-01-24] MEDS ORDERED: TRAM50TA2 PO (03:59)
[2024-01-24] MEDS ORDERED: HOME MED LIST COMPLETE! XX SCH (04:00)
[2024-01-24 05:23] VITALS: BP 186/83
[2024-01-24] MEDS: NITROGLYCERIN 0.4MG SUBL TABLET SL PRN (05:23)
[2024-01-24] MEDS: MORPHINE 4 MG/ML 1ML VIAL IV PRN (05:32)
[2024-01-24 05:36] LABS: CREATININE FOR GFR 1.8 MG/DL (0.55-1.30); GLOMERULAR FILTRATION RATE 29.1 (>39); POTASSIUM SERUM 5.6 MMOL/L (3.5-5.1)
[2024-01-24] MEDS: INSULIN LISPRO (NovoLOG) PER UNIT SC SCH (07:30)
[2024-01-24] MEDS ORDERED: DOCUSATE SODIUM 100MG CAPSULE PO PRN (07:45)
[2024-01-24] MEDS ORDERED: SENOKOT S TAB PO PRN (07:45)
[2024-01-24] MEDS ORDERED: traMADol 50 MG TAB PO PRN (07:45)
[2024-01-24 07:47] VITALS: TEMP 96.5
[2024-01-24] MEDS: MIDODRINE 2.5 MG TAB PO SCH (08:00)
[2024-01-24 08:15] VITALS: BP 130/61; O2SAT 97
[2024-01-24] MEDS: PATIROMER SORBITEX CALCIUM 8.4 GM POWDER PACKET (VELTASSA) PO ONE (08:18)
[2024-01-24] MEDS ORDERED: BUMETANIDE 1 MG TAB PO SCH (09:00)
[2024-01-24] MEDS ORDERED: MAGNESIUM OXIDE 400MG TAB (MAG-OX) PO SCH (09:00)
[2024-01-24] MEDS ORDERED: NYSTATIN 100,000 UNITS/GM TOPICAL PWD 15GM TOP SCH (09:00)
[2024-01-24] MEDS ORDERED: CitaloPRAM (CeleXA) 20 MG TAB PO SCH (09:00)
[2024-01-24] MEDS ORDERED: LEVOTHYROXINE 75MCG TABLET (0.075MG) PO SCH (09:00)
[2024-01-24] MEDS ORDERED: oxyBUTYnin *DITROPAN XL* 5 MG TABCR PO SCH (09:00)
[2024-01-24] MEDS ORDERED: SUCRALFATE 1 GM TAB PO SCH (09:00)
[2024-01-24] MEDS ORDERED: APIXABAN 5 MG TAB (ELIQUIS) PO SCH (09:00)
[2024-01-24] MEDS ORDERED: ATORVASTATIN 10 MG TAB PO SCH (21:00)
[2024-01-24] MEDS ORDERED: INSULIN LISPRO (NovoLOG) PER UNIT SC SCH (21:00)
[2024-01-24] MEDS ORDERED: FENOFIBRATE 145MG TABLET (TRICOR) PO SCH (21:00)
== END 2024-01-24 08:27 | disposition short-term general hospital (02) ==
LOC: M ED 11:08 → EDBD 11:08 → M ED 01-24 08:27
DX: K80.00 Calculus of gallbladder with acute cholecystitis without obstruction (principal); I50.22 Chronic systolic (congestive) heart failure; R79.89 Other specified abnormal findings of blood chemistry; I48.91 Unspecified atrial fibrillation; I25.119 Atherosclerotic heart disease of native coronary artery with unspecified angina pectoris; K21.9 Gastro-esophageal reflux disease without esophagitis; I11.0 Hypertensive heart disease with heart failure; E78.5 Hyperlipidemia, unspecified; Z87.891 Personal history of nicotine dependence; Z88.2 Allergy status to sulfonamides; Z88.1 Allergy status to other antibiotic agents; Z88.8 Allergy status to other drugs, medicaments and biological substances; Z79.1 Long term (current) use of non-steroidal anti-inflammatories (NSAID); Z79.4 Long term (current) use of insulin; Z79.899 Other long term (current) drug therapy
CPT/HCPCS: 71045; 71250; 74176; 76705; 80048; 80076; 82550; 82553; 83690; 83735; 83880; 84132; 84484; 85025; 85610; 85730; 93005; 93041; 94760; 96365; 96374; 96375; 96376; 99285; J0612; J0696; J0744; J1815; J1836; J1940; J2405

== ENCOUNTER → 2024-02-05 | Outpatient (REF) ==
[~2024-02-05] MED LIST changes: +CITA20TA6 PO; +CLAR10CA3 PO; +CVS13CRE TOP; +ONDA-83 PO; +[UNRECOGNIZED DRUG - OTHER] PO
[2024-02-05 09:21] LABS: HEMATOCRIT 31.3 % (36.0-47.0); HEMOGLOBIN 9.3 g/dl (12.0-15.5); MEAN CORPUSCULAR HEMOGLOBIN 25.1 pg (27.0-33.0); MEAN CORPUSCULAR HGB CONC 29.7 g/dl (32.0-36.5); MEAN CORPUSCULAR VOLUME 84.6 fl (80.0-96.0); PLATELET COUNT, AUTOMATED 297 10^3/uL (150-450); WHITE BLOOD COUNT 7.4 10^3/uL (4.0-10.0)
[2024-02-05 09:39] LABS: CALCIUM LEVEL 9.6 MG/DL (8.3-10.6); CREATININE FOR GFR 2.36 MG/DL (0.55-1.30); GLOMERULAR FILTRATION RATE 21.3 (>39); POTASSIUM SERUM 4.4 MMOL/L (3.5-5.1)
== END ==
PROVIDERS: ATTEND Internal Medicine
DX: I50.9 Heart failure, unspecified (principal)

== ENCOUNTER → 2024-02-08 | Outpatient (REF) ==
[2024-02-08 11:31] LABS: HEMATOCRIT 30.7 % (36.0-47.0); HEMOGLOBIN 9.6 g/dl (12.0-15.5); MEAN CORPUSCULAR HGB CONC 31.3 g/dl (32.0-36.5); MEAN CORPUSCULAR VOLUME 83.2 fl (80.0-96.0); PLATELET COUNT, AUTOMATED 296 10^3/uL (150-450); RED BLOOD COUNT 3.69 10^6/uL (4.00-5.40); WHITE BLOOD COUNT 8.8 10^3/uL (4.0-10.0)
[2024-02-08 12:01] LABS: URIC ACID 11.2 MG/DL (3.1-7.8)
[2024-02-08 12:02] LABS: ALBUMIN 3.1 G/DL (3.2-5.2); CALCIUM LEVEL 9.3 MG/DL (8.3-10.6); CREATININE FOR GFR 1.87 MG/DL (0.55-1.30); GLOMERULAR FILTRATION RATE 27.9 (>39); PHOSPHORUS LEVEL 4.5 MG/DL (2.4-5.1); POTASSIUM SERUM 4.3 MMOL/L (3.5-5.1)
[2024-02-08 12:03] LABS: CALCIUM LEVEL 9.3 MG/DL (8.3-10.6); CREATININE FOR GFR 1.85 MG/DL (0.55-1.30); GLOMERULAR FILTRATION RATE 28.2 (>39); POTASSIUM SERUM 4.4 MMOL/L (3.5-5.1)
[2024-02-08 12:04] LABS: PHOSPHORUS LEVEL 4.5 MG/DL (2.4-5.1)
== END ==
PROVIDERS: ATTEND Physician Assistant
DX: I50.9 Heart failure, unspecified (principal)

== ENCOUNTER → 2024-02-08 | Outpatient (REF) | PROVIDERS: ATTEND Internal Medicine | DX: K59.00 Constipation, unspecified (principal) ==

== ENCOUNTER → 2024-02-10 | Outpatient (REF) ==
[2024-02-10 09:38] LABS: CALCIUM LEVEL 9.5 MG/DL (8.3-10.6); CREATININE FOR GFR 1.72 MG/DL (0.55-1.30); GLOMERULAR FILTRATION RATE 30.7 (>39); POTASSIUM SERUM 4.3 MMOL/L (3.5-5.1)
== END ==
PROVIDERS: ATTEND Physician Assistant
DX: N18.9 Chronic kidney disease, unspecified (principal)

== ENCOUNTER → 2024-02-15 | Outpatient (REF) ==
[2024-02-15 11:40] LABS: URIC ACID 6.4 MG/DL (3.1-7.8)
[2024-02-15 11:43] LABS: ALBUMIN 3.4 G/DL (3.2-5.2); CALCIUM LEVEL 9.7 MG/DL (8.3-10.6); CREATININE FOR GFR 1.62 MG/DL (0.55-1.30); GLOMERULAR FILTRATION RATE 32.9 (>39); PHOSPHORUS LEVEL 4.3 MG/DL (2.4-5.1); POTASSIUM SERUM 4.6 MMOL/L (3.5-5.1)
== END ==
PROVIDERS: ATTEND Physician Assistant
DX: N18.9 Chronic kidney disease, unspecified (principal)

== ENCOUNTER → 2024-02-17 | Outpatient (REF) ==
[2024-02-17 10:44] LABS: CALCIUM LEVEL 9.7 MG/DL (8.3-10.6); CREATININE FOR GFR 1.48 MG/DL (0.55-1.30); GLOMERULAR FILTRATION RATE 36.5 (>39); POTASSIUM SERUM 4.9 MMOL/L (3.5-5.1)
== END ==
PROVIDERS: ATTEND Physician Assistant
DX: N18.9 Chronic kidney disease, unspecified (principal)

== ENCOUNTER → 2024-02-22 | Outpatient (REF) ==
[2024-02-22 12:54] LABS: ALBUMIN 3.3 G/DL (3.2-5.2); CREATININE FOR GFR 1.5 MG/DL (0.55-1.30); GLOMERULAR FILTRATION RATE 35.9 (>39); PHOSPHORUS LEVEL 4.6 MG/DL (2.4-5.1); POTASSIUM SERUM 4.5 MMOL/L (3.5-5.1)
== END ==
PROVIDERS: ATTEND Physician Assistant
DX: N18.9 Chronic kidney disease, unspecified (principal)

== ENCOUNTER → 2024-02-24 | Outpatient (REF) ==
[2024-02-24 08:03] LABS: HEMATOCRIT 29.5 % (36.0-47.0); HEMOGLOBIN 8.8 g/dl (12.0-15.5); MEAN CORPUSCULAR HEMOGLOBIN 25.3 pg (27.0-33.0); MEAN CORPUSCULAR HGB CONC 29.8 g/dl (32.0-36.5); MEAN CORPUSCULAR VOLUME 84.8 fl (80.0-96.0); PLATELET COUNT, AUTOMATED 293 10^3/uL (150-450); RED BLOOD COUNT 3.48 10^6/uL (4.00-5.40); WHITE BLOOD COUNT 6.7 10^3/uL (4.0-10.0)
== END ==
PROVIDERS: ATTEND Physician Assistant
DX: D64.9 Anemia, unspecified (principal)

== ENCOUNTER → 2024-03-02 | Outpatient (REF) ==
[~2024-03-02] MED LIST changes: +BENE1POW5 PO; +BISA10SU PR; +DESI13CR2 TOP; +DILT360C7 PO; +FARX1TAB3 PO; +FEBU40TA4 PO; +FLEEENE12 PR; +GLUC1KIT IM; +INSUDET SC; +LEVO50TA45 PO; +MYLASSUD PO; +PANT-23 PO; +TRUL10IN SC
[2024-03-02 11:47] LABS: BASO # 0.1 10^3/uL (0.0-0.2); BASO % 0.9 % (0.0-1.0); EOS # 0.2 10^3/uL (0.0-0.5); EOS % 3.2 % (0.0-3.0); HEMATOCRIT 29.4 % (36.0-47.0); HEMOGLOBIN 8.6 g/dl (12.0-15.5); LYMPH % 15.8 % (24.0-44.0); MEAN CORPUSCULAR HEMOGLOBIN 24.2 pg (27.0-33.0); MEAN CORPUSCULAR HGB CONC 29.3 g/dl (32.0-36.5); MEAN CORPUSCULAR VOLUME 82.8 fl (80.0-96.0); MONO # 0.8 10^3/uL (0.0-0.8); MONO % 12.1 % (2.0-8.0); NEUTROPHILS # 4.3 10^3/uL (1.5-8.5); NEUTROPHILS % 67.7 % (36.0-66.0); PLATELET COUNT, AUTOMATED 276 10^3/uL (150-450); RED BLOOD COUNT 3.55 10^6/uL (4.00-5.40); WHITE BLOOD COUNT 6.3 10^3/uL (4.0-10.0)
[2024-03-02 12:22] LABS: ALBUMIN 3.1 G/DL (3.2-5.2); BILIRUBIN,TOTAL 0.7 MG/DL (0.3-1.2); CREATININE FOR GFR 1.74 MG/DL (0.55-1.30); GLOMERULAR FILTRATION RATE 30.3 (>39); POTASSIUM SERUM 4.6 MMOL/L (3.5-5.1); TOTAL PROTEIN 5.8 G/DL (5.7-8.2)
== END ==
PROVIDERS: ATTEND Physician Assistant
DX: D64.9 Anemia, unspecified (principal)

== ENCOUNTER → 2024-03-03 | Outpatient (REF) | payer MEDICAID, MEDICARE | PROVIDERS: ATTEND Internal Medicine | DX: I51.7 Cardiomegaly (principal) ==

== ENCOUNTER → 2024-03-03 | Outpatient (REF) ==
[~2024-03-03] MED LIST changes: -BENE1POW5 PO; -BISA10SU PR; -DESI13CR2 TOP; -DILT360C7 PO; -FARX1TAB3 PO; -FEBU40TA4 PO; -FLEEENE12 PR; -GLUC1KIT IM; -INSUDET SC; -LEVO50TA45 PO; -MYLASSUD PO; -PANT-23 PO; -TRUL10IN SC
== END ==
PROVIDERS: ATTEND Internal Medicine
DX: R06.02 Shortness of breath (principal)

== ENCOUNTER → 2024-03-04 | Outpatient (REF) ==
[2024-03-04 08:51] LABS: BASO % 0.2 % (0.0-1.0); EOS # 0.4 10^3/uL (0.0-0.5); EOS % 4.4 % (0.0-3.0); HEMATOCRIT 27.6 % (36.0-47.0); HEMOGLOBIN 8.5 g/dl (12.0-15.5); LYMPH # 0.5 10^3/uL (1.5-5.0); LYMPH % 5.4 % (24.0-44.0); MEAN CORPUSCULAR HEMOGLOBIN 25.4 pg (27.0-33.0); MEAN CORPUSCULAR HGB CONC 30.8 g/dl (32.0-36.5); MEAN CORPUSCULAR VOLUME 82.4 fl (80.0-96.0); MONO # 0.4 10^3/uL (0.0-0.8); MONO % 3.9 % (2.0-8.0); NEUTROPHILS # 8.3 10^3/uL (1.5-8.5); NEUTROPHILS % 85.6 % (36.0-66.0); PLATELET COUNT, AUTOMATED 236 10^3/uL (150-450); RED BLOOD COUNT 3.35 10^6/uL (4.00-5.40); WHITE BLOOD COUNT 9.7 10^3/uL (4.0-10.0)
[2024-03-04 09:24] LABS: CALCIUM LEVEL 8.5 MG/DL (8.3-10.6); CREATININE FOR GFR 1.89 MG/DL (0.55-1.30); GLOMERULAR FILTRATION RATE 27.5 (>39); POTASSIUM SERUM 4.2 MMOL/L (3.5-5.1)
== END ==
PROVIDERS: ATTEND Physician Assistant
DX: R06.02 Shortness of breath (principal)

== ENCOUNTER → 2024-03-07 | Outpatient (REF) ==
[2024-03-07 08:34] LABS: BASO # 0.1 10^3/uL (0.0-0.2); BASO % 0.7 % (0.0-1.0); EOS # 0.6 10^3/uL (0.0-0.5); EOS % 7.9 % (0.0-3.0); HEMATOCRIT 30.1 % (36.0-47.0); HEMOGLOBIN 8.9 g/dl (12.0-15.5); LYMPH # 1.3 10^3/uL (1.5-5.0); LYMPH % 17.7 % (24.0-44.0); MEAN CORPUSCULAR HEMOGLOBIN 24.7 pg (27.0-33.0); MEAN CORPUSCULAR HGB CONC 29.6 g/dl (32.0-36.5); MEAN CORPUSCULAR VOLUME 83.4 fl (80.0-96.0); MONO # 0.9 10^3/uL (0.0-0.8); MONO % 12.5 % (2.0-8.0); NEUTROPHILS # 4.4 10^3/uL (1.5-8.5); NEUTROPHILS % 60.4 % (36.0-66.0); PLATELET COUNT, AUTOMATED 338 10^3/uL (150-450); RED BLOOD COUNT 3.61 10^6/uL (4.00-5.40); WHITE BLOOD COUNT 7.3 10^3/uL (4.0-10.0)
[2024-03-07 08:58] LABS: CALCIUM LEVEL 8.7 MG/DL (8.3-10.6); CREATININE FOR GFR 1.97 MG/DL (0.55-1.30); GLOMERULAR FILTRATION RATE 26.2 (>39); POTASSIUM SERUM 4.6 MMOL/L (3.5-5.1)
== END ==
PROVIDERS: ATTEND Physician Assistant
DX: R09.02 Hypoxemia (principal)

== ENCOUNTER → 2024-03-09 | Outpatient (REF) ==
[2024-03-09 09:49] LABS: HEMATOCRIT 29.2 % (36.0-47.0); HEMOGLOBIN 8.7 g/dl (12.0-15.5); MEAN CORPUSCULAR HEMOGLOBIN 24.3 pg (27.0-33.0); MEAN CORPUSCULAR HGB CONC 29.8 g/dl (32.0-36.5); MEAN CORPUSCULAR VOLUME 81.6 fl (80.0-96.0); PLATELET COUNT, AUTOMATED 333 10^3/uL (150-450); RED BLOOD COUNT 3.58 10^6/uL (4.00-5.40)
[2024-03-09 10:20] LABS: CALCIUM LEVEL 8.7 MG/DL (8.3-10.6); CREATININE FOR GFR 1.99 MG/DL (0.55-1.30); GLOMERULAR FILTRATION RATE 25.9 (>39); POTASSIUM SERUM 4.9 MMOL/L (3.5-5.1)
== END ==
PROVIDERS: ATTEND Physician Assistant
DX: I50.9 Heart failure, unspecified (principal)

== ENCOUNTER → 2024-03-14 | Outpatient (REF) ==
[~2024-03-14] MED LIST changes: +BENE1POW5 PO; +BISA10SU PR; +DESI13CR2 TOP; +DILT360C7 PO; +FARX1TAB3 PO; +FEBU40TA4 PO; +FLEEENE12 PR; +GLUC1KIT IM; +INSUDET SC; +LEVO50TA45 PO; +MYLASSUD PO; +PANT-23 PO; +TRUL10IN SC
[2024-03-14 09:37] LABS: HEMATOCRIT 28.2 % (36.0-47.0); HEMOGLOBIN 8.4 g/dl (12.0-15.5); MEAN CORPUSCULAR HEMOGLOBIN 24.4 pg (27.0-33.0); MEAN CORPUSCULAR HGB CONC 29.8 g/dl (32.0-36.5); PLATELET COUNT, AUTOMATED 297 10^3/uL (150-450); RED BLOOD COUNT 3.44 10^6/uL (4.00-5.40); WHITE BLOOD COUNT 6.9 10^3/uL (4.0-10.0)
== END ==
PROVIDERS: ATTEND Internal Medicine
DX: D64.9 Anemia, unspecified (principal)

== ENCOUNTER → 2024-03-15 | Outpatient (REF) ==
[2024-03-15 14:25] LABS: HEMATOCRIT 31.4 % (36.0-47.0); HEMOGLOBIN 9.2 g/dl (12.0-15.5); MEAN CORPUSCULAR HGB CONC 29.3 g/dl (32.0-36.5); MEAN CORPUSCULAR VOLUME 81.8 fl (80.0-96.0); PLATELET COUNT, AUTOMATED 333 10^3/uL (150-450); RED BLOOD COUNT 3.84 10^6/uL (4.00-5.40); WHITE BLOOD COUNT 7.8 10^3/uL (4.0-10.0)
[2024-03-15 15:39] LABS: CALCIUM LEVEL 10.1 MG/DL (8.3-10.6); CREATININE FOR GFR 1.79 MG/DL (0.55-1.30); GLOMERULAR FILTRATION RATE 29.3 (>39)
== END ==
PROVIDERS: ATTEND Physician Assistant
DX: N18.9 Chronic kidney disease, unspecified (principal)

== ENCOUNTER → 2024-03-15 | Outpatient (REF) | PROVIDERS: ATTEND Internal Medicine | DX: J90 Pleural effusion, not elsewhere classified (principal); I51.7 Cardiomegaly ==

== ENCOUNTER → 2024-03-16 | Outpatient (REF) ==
[2024-03-16 10:45] LABS: HEMATOCRIT 29.3 % (36.0-47.0); HEMOGLOBIN 8.8 g/dl (12.0-15.5); MEAN CORPUSCULAR HEMOGLOBIN 24.4 pg (27.0-33.0); MEAN CORPUSCULAR VOLUME 81.2 fl (80.0-96.0); PLATELET COUNT, AUTOMATED 298 10^3/uL (150-450); RED BLOOD COUNT 3.61 10^6/uL (4.00-5.40); WHITE BLOOD COUNT 7.5 10^3/uL (4.0-10.0)
[2024-03-16 11:24] LABS: CALCIUM LEVEL 9.6 MG/DL (8.3-10.6); CREATININE FOR GFR 1.83 MG/DL (0.55-1.30); GLOMERULAR FILTRATION RATE 28.6 (>39); POTASSIUM SERUM 5.3 MMOL/L (3.5-5.1)
== END ==
PROVIDERS: ATTEND Physician Assistant
DX: N18.9 Chronic kidney disease, unspecified (principal)

== ENCOUNTER 2024-03-18 10:28 | Emergency (ER) | payer MEDICARE, MEDICAID ==
[~2024-03-18] VITALS: Ht 160 cm; Wt 105.6 kg
[~2024-03-18 10:28] MED LIST changes: -BENE1POW5 PO; -BISA10SU PR; -DESI13CR2 TOP; -DILT360C7 PO; -FARX1TAB3 PO; -FEBU40TA4 PO; -FLEEENE12 PR; -GLUC1KIT IM; -INSUDET SC; -LEVO50TA45 PO; -MYLASSUD PO; -PANT-23 PO; -TRUL10IN SC
[2024-03-18] MEDS: NS 500 ML IV ONE ×2 (10:54→11:30)
[2024-03-18 11:44] LABS: BASO # 0.1 10^3/uL (0.0-0.2); BASO % 1.2 % (0.0-1.0); EOS # 0.3 10^3/uL (0.0-0.5); EOS % 3.6 % (0.0-3.0); HEMATOCRIT 32.3 % (36.0-47.0); HEMOGLOBIN 9.5 g/dl (12.0-15.5); LYMPH % 13.6 % (24.0-44.0); MEAN CORPUSCULAR HEMOGLOBIN 23.8 pg (27.0-33.0); MEAN CORPUSCULAR HGB CONC 29.4 g/dl (32.0-36.5); MEAN CORPUSCULAR VOLUME 80.8 fl (80.0-96.0); MONO # 0.6 10^3/uL (0.0-0.8); MONO % 8.6 % (2.0-8.0); NEUTROPHILS # 5.4 10^3/uL (1.5-8.5); NEUTROPHILS % 72.7 % (36.0-66.0); PLATELET COUNT, AUTOMATED 312 10^3/uL (150-450); WHITE BLOOD COUNT 7.5 10^3/uL (4.0-10.0)
[2024-03-18] MEDS: NOREPINEPHRINE 4MG IN D5 250ML 4 MG in IV 1 EA IV SCH (12:07)
[2024-03-18 12:08] LABS: INR 1.84; PARTIAL THROMBOPLASTIN TIME 34.1 SECONDS (24.8-34.2); PROTHROMBIN TIME 20.6 SECONDS (12.5-14.5)
[2024-03-18 12:14] LABS: CK-MB VALUE MASS 5.4 NG/ML (<3.6)
[2024-03-18 12:17] LABS: ALBUMIN 3.2 G/DL (3.2-5.2); BILIRUBIN,DIRECT 0.4 MG/DL (<0.4); BILIRUBIN,TOTAL 0.8 MG/DL (0.3-1.2); CALCIUM LEVEL 9.6 MG/DL (8.3-10.6); CREATININE FOR GFR 1.78 MG/DL (0.55-1.30); GLOMERULAR FILTRATION RATE 29.5 (>39); TOTAL PROTEIN 6.1 G/DL (5.7-8.2)
[2024-03-18 12:19] LABS: FREE T4 1.47 NG/DL (0.89-1.76); THYROID STIMULATING HORMONE 5.858 uIU/ML (0.55-4.78)
[2024-03-18 12:23] LABS: PROCALCITONIN 0.08 ng/ml
[2024-03-18 12:32] LABS: MB/CK RELATIVE INDEX 7.29 (< OR =4)
[2024-03-18] MEDS ORDERED: BISA10SU PR (13:15)
[2024-03-18] MEDS ORDERED: METO1TAB7 PO (13:15)
[2024-03-18] MEDS ORDERED: INSUDET SC (13:15)
[2024-03-18] MEDS ORDERED: PANT-23 PO (13:15)
[2024-03-18] MEDS ORDERED: FARX1TAB3 PO (13:15)
[2024-03-18] MEDS ORDERED: MYLASSUD PO (13:15)
[2024-03-18] MEDS ORDERED: BUME2TAB3 PO (13:15)
[2024-03-18] MEDS ORDERED: LEVO50TA45 PO (13:15)
[2024-03-18] MEDS ORDERED: FLEEENE12 PR (13:15)
[2024-03-18] MEDS ORDERED: FEBU40TA4 PO (13:15)
[2024-03-18] MEDS ORDERED: TRUL10IN SC (13:15)
[2024-03-18] MEDS ORDERED: DILT360C7 PO (13:15)
[2024-03-18] MEDS ORDERED: BENE1POW5 PO (13:15)
[2024-03-18] MEDS ORDERED: DESI13CR2 TOP (13:15)
[2024-03-18] MEDS ORDERED: GLUC1KIT IM (13:15)
[2024-03-18] MEDS ORDERED: HOME MED LIST COMPLETE! XX SCH (13:20)
[2024-03-18 13:23] LABS: CK-MB VALUE MASS 8.6 NG/ML (<3.6)
[2024-03-18] MEDS: LIDOCAINE 2% 5ML JELLY UROJET TOP ONE (13:26)
[2024-03-18] MEDS: LevoFLOXacin IV 750 MG in IV 1 EA IV ONE (13:26)
[2024-03-18 13:28] LABS: MB/CK RELATIVE INDEX 6.93 (< OR =4)
[2024-03-18 15:46] VITALS: BP 114/65; TEMP 98; O2SAT 94
== END 2024-03-18 15:50 | disposition short-term general hospital (02) ==
LOC: M ED 10:28
DX: I21.4 Non-ST elevation (NSTEMI) myocardial infarction (principal); I50.22 Chronic systolic (congestive) heart failure; E11.9 Type 2 diabetes mellitus without complications; I10 Essential (primary) hypertension; E03.9 Hypothyroidism, unspecified; E78.5 Hyperlipidemia, unspecified; Z86.79 Personal history of other diseases of the circulatory system; Z95.0 Presence of cardiac pacemaker; Z88.2 Allergy status to sulfonamides; Z88.1 Allergy status to other antibiotic agents; Z88.8 Allergy status to other drugs, medicaments and biological substances; Z79.01 Long term (current) use of anticoagulants; Z79.811 Long term (current) use of aromatase inhibitors; Z79.4 Long term (current) use of insulin; Z79.899 Other long term (current) drug therapy
CPT/HCPCS: 36415; 51702; 71045; 80047; 80048; 80076; 82150; 82550; 82553; 83605; 83690; 84145; 84439; 84443; 84484; 85025; 85610; 85730; 86140; 87040; 87486; 87581; 87633; 87798; 93005; 93041; 94760; 96361; 96365; 96366; 99291; 99292; J1956

== ENCOUNTER → 2024-03-21 | Outpatient (REF) | payer MEDICARE, MEDICAID ==
[~2024-03-21] MED LIST changes: +BENE1POW5 PO; +BISA10SU PR; +DESI13CR2 TOP; +DILT360C7 PO; +FARX1TAB3 PO; +FEBU40TA4 PO; +FLEEENE12 PR; +GLUC1KIT IM; +INSUDET SC; +LEVO50TA45 PO; +MYLASSUD PO; +PANT-23 PO; +TRUL10IN SC
== END ==
PROVIDERS: ATTEND Internal Medicine
DX: I50.9 Heart failure, unspecified (principal); Z53.8 Procedure and treatment not carried out for other reasons